=== PATIENT | male | born 1950 | race Caucasian/White ===

== ENCOUNTER 2017-02-05 13:42 | Outpatient (RCR) | payer BC ==
[~2017-02-05 13:42] MED LIST: ALPR.25T PO; ALPR0.254 PO; ASCO100083 PO; ASCO500T20 PO; ASP81CT PO; ASPI-983 PO; ATOR80TA PO; ATOR80TA75 PO; ATOR80TA76 PO; BACL10TA PO; CHOL200035 PO; CHOL200059 PO; CLOP75TA PO; CLOP75TA28 PO; ESCI20TA45 PO; ESCI5TAB PO; ISM30TCR PO; ISM60TCR PO; LEVO112T55 PO; LVT.112T PO; MAGN400C PO; METO-270 PO; METO25TA PO; MTP25TSR PO; NAPR220C11 PO; OMEG-82 PO; PNT40TEC PO; RANEXA 500MG PO; RANO500T3 PO; SAWP1CAP PO; TEST75GE3 TOP; VITA400C60 PO
== END 2017-02-11 15:12 | disposition home or self-care (01) ==
PROVIDERS: ATTEND Nurse Practitioner Family
DX: Z47.89 Encounter for other orthopedic aftercare (principal)

== ENCOUNTER 2017-06-05 08:34 | Emergency (ER) | payer BC, MEDICARE ==
[~2017-06-05] VITALS: Ht 188 cm; Wt 102.1 kg
[2017-06-05] MEDS ORDERED: NS IV 1000 ML 1,000 ML IV ONE ×2 (08:43→10:52)
[2017-06-05] MEDS ORDERED: fentaNYL INJECTION 100 MCG/2 ML AMP ONE (08:43)
--- NOTE | 2017-06-05 08:43 | ED GU-Male ---
General Stated Complaint: KIDNEY STONE Source: patient, spouse Exam Limitations: no limitations History of Present Illness Time seen by provider: 08:38 Initial Comments Patient presents to ER by private conveyance with his spouse with chief complaint of right flank pain and hesitancy and tinged urine. He is has a history of kidney stones. Feels it is passing one now. He has had have retrieval [address] Eng. He has had no fevers or chills. He is expressing some pain and had some dry heaves earlier today. He has a history of vascular disease and is on Plavix and aspirin. He is had 4 heart cast but says no stents. He's had a history of stroke. Allergies and Home Medications Allergies Coded Allergies: Codeine (Verified Allergy, Unknown, 06/14/07) Iodinated Contrast Media - IV Dye (Verified Allergy, Unknown, 06/14/07) fexofenadine (Verified Allergy, Unknown, 06/14/07) Home Medications Alprazolam 0.25 Mg Tablet, 0.25 MG PO HS PRN for SLEEP, (Reported) Ascorbic Acid 1,000 Mg Tab.chew, 1,000 MG PO DAILY, (Reported) Aspirin 81 Mg Tablet.dr, 81 MG PO DAILY, (Reported) Atorvastatin Calcium 80 Mg Tablet, 80 MG PO HS, (Reported) Baclofen 10 Mg Tablet, 10 MG PO HS, (Reported) Cholecalciferol (Vitamin D3) 2,000 Unit Tablet, 2,000 UNIT PO DAILY, (Reported) Clopidogrel Bisulfate 75 Mg Tablet, 75 MG PO DAILY, (Reported) Escitalopram Oxalate 20 Mg Tablet, 10 MG PO BID, (Reported) TAKES 1/2 (20MG) TABLET Levothyroxine Sodium 112 Mcg Tablet, 112 MCG PO DAILY, (Reported) Magnesium Oxide 400 Mg Capsule, 400 MG PO HS, (Reported) Metoprolol Succinate 25 Mg Tab.er.24h, 25 MG PO BID, (Reported) DOES NOT TAKE OF BP BELOW 100 [place]-3S/Dha/Epa/Fish Oil/D3 1 Each Capsule, 1 CAP PO DAILY, (Reported) Ranolazine 500 Mg Tab.er.12h, 500 MG PO HS, (Reported) Sawpalmtofrtxt/Zinc Picolinate 1 Each Capsule, 1 CAP PO DAILY, (Reported) 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, 1 APPFUL TOP DAILY, (Reported) Vitamin E Acetate 400 Unit Capsule, 400 UNIT PO DAILY, (Reported) Constitutional: No chills, No diaphoresis, No dizziness, No fever, No malaise Respiratory: No cough, No short of breath Cardiovascular: No chest pain, No palpitations Gastrointestinal: abdominal pain (right flank), No constipation, No diarrhea, nausea, vomiting Genitourinary: burning, denies discharge, dysuria, flank pain Musculoskeletal: No back pain, No joint pain Skin: No pruritus, No rash Psychiatric/Neurological: Denies Headache, Denies Numbness Past Fcvokbu-Fwyexn-Cvpyth Hx Patient Social History Former Smoker/When Quit: May 10, 1981 Recent Foreign Travel: No Contact w/Someone Who Travel: No Immunizations Up To Date Date of Pneumonia Vaccine: Sep 08, 2011 Date of Influenza Vaccine: Aug 08, 2015 Surgeries HX Surgeries: Yes (R KNEE, CATARACT REMOVAL, ESOPHAGEAL REPAIR, MULTIPLE HEART CATHS) Respiratory Hx Respiratory Disorders: No Cardiovascular Hx Cardiac Disorders: Yes (RIGHT BUNDLE BRANCH BLOCK) Neurological Hx Neurological Disorders: Yes Reproductive System Hx Reproductive Disorders: No Sexually Transmitted Disease: No Genitourinary Hx Genitourinary Disorders: Yes Genitourinary Disorders: Kidney Stones Gastrointestinal Hx Gastrointestinal Disorders: Yes (ESOPHAGEAL REPAIR) Gastrointestinal Disorders: Gastroesophageal Reflux, Esophagitis Musculoskeletal Hx Musculoskeletal Disorders: Yes Musculoskeletal Disorders: Arthritis Endocrine Hx Endocrine Disorders: Yes Endocrine Disorders: Hypothyroidsim HEENT HX ENT Disorders: No Loss of Vision: Denies Cancer Hx Cancer: No Psychosocial Hx Psychiatric Problems: No Integumentary HX Skin/Integumentary Disorder: No Blood Transfusions Hx Blood Disorders: No Adverse Reaction to a Blood Tr: No Family Medical History Family Medial History: Cardiovascular disease 19 MOTHER Myocardial infarction 19 MOTHER Physical Exam Vital Signs Vital Sign - Last 12Hours 06/05/17 08:35 Temp 98.0 Pulse 60 Resp 16 B/P (MAP) 157/105 Pulse Ox 98 O2 Delivery Room Air Capillary Refill : General Appearance: WD/WN, no apparent distress HEENT: PERRL/EOMI, pharynx normal Cardiovascular: regular rate, rhythm, no edema Respiratory: lungs clear, normal breath sounds Gastrointestinal: normal bowel sounds, non tender, soft Back: normal inspection, CVA tenderness (R) Extremities: no pedal edema, normal capillary refill Neurologic/Psychiatric: alert, oriented x 3 Skin: normal color, warm/dry Progress/Results/Core Measures Results/Orders Lab Results Laboratory Tests Test 06/05/17 08:43 06/05/17 11:25 Range/Units White Blood Count 6.0 4.3-11.0 10^3/uL Red Blood Count 4.44 4.35-5.85 10^6/uL Hemoglobin 14.0 13.3-17.7 G/DL Hematocrit 42 40-54 % Mean Corpuscular Volume 94 80-99 FL Mean Corpuscular Hemoglobin 32 25-34 PG Mean Corpuscular Hemoglobin Concent 34 32-36 G/DL Red Cell Distribution Width 13.2 10.0-14.5 % Platelet Count 251 130-400 10^3/uL Mean Platelet Volume 9.4 7.4-10.4 FL Neutrophils (%) (Auto) 61 42-75 % Lymphocytes (%) (Auto) 25 12-44 % Monocytes (%) (Auto) 12 0-12 % Eosinophils (%) (Auto) 1 0-10 % Basophils (%) (Auto) 1 0-10 % Neutrophils # (Auto) 3.6 1.8-7.8 X 10^3 Lymphocytes # (Auto) 1.5 1.0-4.0 X 10^3 Monocytes # (Auto) 0.7 0.0-1.0 X 10^3 Eosinophils # (Auto) 0.1 0.0-0.3 10^3/uL Basophils # (Auto) 0.0 0.0-0.1 10^3/uL Sodium Level 142 135-145 MMOL/L Potassium Level 3.8 3.6-5.0 MMOL/L Chloride Level 108 H 98-107 MMOL/L Carbon Dioxide Level 21 21-32 MMOL/L Anion Gap 13 5-14 MMOL/L Blood Urea Nitrogen 11 7-18 MG/DL Creatinine 0.93 0.60-1.30 MG/DL Estimat Glomerular Filtration Rate > 60 BUN/Creatinine Ratio 12 Glucose Level 120 H 70-105 MG/DL Calcium Level 8.9 8.5-10.1 MG/DL Total Bilirubin 0.8 0.1-1.0 MG/DL Aspartate Amino Transf (AST/SGOT) 24 5-34 U/L Alanine Aminotransferase (ALT/SGPT) 37 0-55 U/L Alkaline Phosphatase 92 40-136 U/L Total Protein 6.9 6.4-8.2 GM/DL Albumin 4.1 3.2-4.5 GM/DL My Orders Orders - DILEEP ROACH Ct Abd/Pelvis Wo(Kidney Stone) (06/05/17 08:43) Abdomen/Kub 1view (06/05/17 08:43) Saline Lock/Iv-Start (06/05/17 08:43) Ns Iv 1000 Ml (Sodium Chloride 0.9%) (06/05/17 08:43) Cbc With Automated Diff (06/05/17 08:43) Comprehensive Metabolic Panel (06/05/17 08:43) Ua Culture If Indicated (06/05/17 08:43) Fentanyl Injection (Sublimaze Injection (06/05/17 09:00) Ondansetron Injection (Zofran Injectio (06/05/17 09:00) Fentanyl Injection (Sublimaze Injection (06/05/17 08:43) Fentanyl Injection (Sublimaze Injection (06/05/17 10:30) Saline Lock/Iv-Start (06/05/17 10:52) Ns Iv 1000 Ml (Sodium Chloride 0.9%) (06/05/17 10:52) Ceftriaxone Injection (Rocephin Injectio (06/05/17 11:45) Medications Given in ED Current Medications Medications Dose Ordered Sig/Steve Route Start Time Stop Time Status Last Admin Dose Admin Fentanyl Citrate 50 mcg ONCE ONCE IVP 06/05/17 09:00 06/05/17 09:01 DC 06/05/17 08:50 50 MCG Fentanyl Citrate 50 mcg ONCE PRN IVP 06/05/17 10:30 06/05/17 10:43 50 MCG Ondansetron HCl 4 mg ONCE ONCE IVP 06/05/17 09:00 06/05/17 09:01 DC 06/05/17 08:53 4 MG Sodium Chloride 1,000 ml @ 0 mls/hr Q0M ONCE IV 06/05/17 08:43 06/05/17 08:46 DC 06/05/17 08:49 1,000 MLS/HR Sodium Chloride 1,000 ml @ 0 mls/hr Q0M ONCE IV 06/05/17 10:52 06/05/17 10:53 DC 06/05/17 11:03 1,000 MLS/HR Vital Signs/I&O Vital Sign - Last 12Hours 06/05/17 08:35 Temp 98.0 Pulse 60 Resp 16 B/P (MAP) 157/105 Pulse Ox 98 O2 Delivery Room Air Progress Note : Time: 11:44 Progress Note There are some stones in his clinical exam does not correlate with diverticulitis. However was given return precautions in case this is not resolved with the straining capturing of stones and Flomax and a gram or Rocephin now and Keflex to go home on. Patient states his understanding of the instructions. Diagnostic Imaging Diagonstic Imaging: Xray Plain Films/CT/US/NM/MRI: abdomen Comments NAME: MAGGI CHAVIRA [facility] REC#: [id number] PHYSICIAN: DILEEP ROACH MD CC: CAROL JALLOH; DILEEP ROACH Page 1 of 1 RADIOLOGY REPORT VIA [facility], [facility]. [place], [place] CC: CAROL JALLOH; DILEEP ROACH Page 1 of 1 RADIOLOGY REPORT NAME: MAGGI CHAVIRA [facility] REC#: [id number] PT STATUS: REG ER : 1950 PHYSICIAN: DILEEP ROACH MD ADMIT DATE: 06/05/17/ER Signed Date of Exam: 06/05/17 ABDOMEN/KUB 1VIEW INDICATION: Hematuria, history of kidney stones, abdominal pain. COMPARISON: 02/24/2016. FINDINGS: Single view of the abdomen demonstrates nonspecific gas within the small bowel. There is no distention. No visible calculi seen. IMPRESSION: Nonspecific KUB. No visible renal calculi. Dictated by: Dictated on workstation # [id number] Dict: 06/05/17 0946 Trans: 06/05/17 1044 Interpreted by: CAROL JALLOH Electronically signed by: CAROL JALLOH 06/05/17 1044 Reviewed: Reviewed by Me Diagonstic Imaging: CT Plain Films/CT/US/NM/MRI: abdomen (pelvis without. kidney protocol) [facility] [place], [place] NAME: MAGGI CHAVIRA [facility] REC#: [id number] PT STATUS: REG ER : 1950 PHYSICIAN: DILEEP ROACH MD ADMIT DATE: 06/05/17/ER Draft Date of Exam:06/05/17 CT ABD/PELVIS WO(KIDNEY STONE) PROCEDURE: CT urinary tract, rule out kidney stone. TECHNIQUE: Multiple contiguous axial images were obtained through the abdomen and pelvis without the use of intravenous contrast. INDICATION: Right-sided pain since early this morning. History of stones. Hematuria. EXAMINATION: CT abdomen and pelvis without contrast 06/05/2017 COMPARISON: 02/24/2016 FINDINGS: There is a small nodule in the right middle lobe stable from previous imaging. Remaining lung bases demonstrate areas of scar or atelectasis. A reticular nodular appearing density at the right lung base posteriorly is noted and could be due to its atypical infectious etiology although some of these findings were present on previous imaging. There is a nodule in the periphery of the right lung base laterally also stable. Small nodule left lung base posteriorly image 32 is noted not seen previously. Within the abdomen and the pelvis, the abdominal viscera limited by lack of contrast. The liver slightly prominent. No underlying abnormality is appreciated. The gallbladder unremarkable. Spleen normal in appearance. Adrenal glands and pancreas unremarkable. There is atherosclerotic disease along the course of the aorta and its branches. The right kidney demonstrates mild to moderate hydronephrosis. The right ureter slightly prominent along its entire course and in the distal right ureter at least 2 small punctate hyperdensities are noted less than a millimeter in size likely punctate passing stones proximal to the UVJ. The left ureter unremarkable. There is no hydronephrosis on the left. There is a hypodensity within the right kidney stable in size from previous imaging likely a cyst. A second more vague hypodensity is seen towards the inferior posterior aspect of the right kidney which may demonstrate minimal increase in size previously measuring 2.6 cm and now measuring just over 2.7 cm. An exophytic lesion off of the posterior aspect of the left mid kidney is stable and most consistent with Hounsfield units seen in cysts. No ascites or free air is seen. There is atherosclerotic disease noted. There is postoperative change in the right lower quadrant. Diverticular disease seen in the distal descending colon and sigmoid colon. Questionable minimal early fat stranding about the distal descending colon is seen versus chronic scarring given history of previous diverticulitis. Correlate with symptoms. No adjacent free air or fluid is seen. No acute abnormality seen in the osseous structures. IMPRESSION: 1. Tiny punctate densities in the distal right ureter proximal to the UVJ consistent with stones which cause mild to moderate right hydroureteronephrosis. 2. Cystic lesions in both kidneys likely all cysts. The larger lesion in the inferior right kidney slightly increased in size and these could be followed as clinically warranted. 3. Minimal fat stranding about the distal descending colon adjacent to several diverticula. This could be a chronic process. However, mild early diverticulitis not excluded; correlate with symptoms. Other findings as above. Dictated on workstation # [id number] Dict: 06/05/17 0946 Trans: 06/05/17 1026 [id number] Interpreted by: ROB RITCHIE MD Electronically signed by: Reviewed: Reviewed by Me Departure Impression Impression: Primary Impression: Kidney stones Additional Impression: Urinary tract infection Qualified Codes: N30.01 - Acute cystitis with hematuria Disposition: HOME, SELF-CARE Condition: Improved Departure-Patient Inst. Decision time for Depature: 11:45 Referrals: LISY BARILLAS DO (PCP) Primary Care Physician Patient Instructions: Kidney Stones (DC) Add. Discharge Instructions: You do have some kidney stones on the right side that should easily pass on their own. Drink copious amounts of fluids and drink caffeine. If you're having pain you can use heat to that side an NSAID such as ibuprofen, Naprosyn, Aleve or Tylenol. If this is not helping you can use one half to one tablet of hydrocodone every 6 hours as needed. For a few days after passing the stone it is not unusual to see some pink tinged urine or have some pain in the same area. If you're unable to pass the stones in 3-4 days you can follow-up with Dr. Patel in his office at [phone]. Opiates can cause confusion so he should not drive long distances or operate heavy machinery. They can also cause constipation so everyday you're taking an opiate you should take some kind of laxative such as MiraLAX or Dulcolax. You will also be sent out on tamsulosin to be taken every night to help pass the stones until they are gone. You will also be sent out on an antibiotic to cover for a urinary tract infection while stones or passing to be taken for 7 days. If you have fever or nausea or new or worsening symptoms should return to the ER or follow up with your primary care physician. Scripts Hydrocodone/Acetaminophen (Hydrocodon-Acetaminophn 10-325) 1 Each Tablet 1 EACH PO Q6H Y for PAIN, #12 TAB 0 Refills Prov: DILEEP ROACH 06/05/17 Tamsulosin HCl (Flomax) 0.4 Mg Cap 0.4 MG PO HS for 7 Days, #7 CAP 0 Refills Prov: DILEEP ROACH 06/05/17 Sulfamethoxazole/Trimethoprim (Bactrim Ds Tablet) 1 Each Tablet 1 EACH PO BID for 7 Days, #14 TAB 0 Refills Prov: DILEEP ROACH 06/05/17 Copy Copies To 1: LISY BARILLAS TITUS J Jun 05, 2017 08:43
[2017-06-05 08:51] LABS: BASOPHILS % (AUTO) 1 % (0-10); EOSINOPHILS # (AUTO) 0.1 10^3/uL (0.0-0.3); EOSINOPHILS % (AUTO) 1 % (0-10); LYMPHOCYTES # (AUTO) 1.5 X 10^3 (1.0-4.0); LYMPHOCYTES % (AUTO) 25 % (12-44); MEAN CORPUSCULAR HEMOGLOBIN 32 PG (25-34); MEAN CORPUSCULAR HGB CONC 34 G/DL (32-36); MEAN CORPUSCULAR VOLUME 94 FL (80-99); MEAN PLATELET VOLUME 9.4 FL (7.4-10.4); MONOCYTES # (AUTO) 0.7 X 10^3 (0.0-1.0); MONOCYTES % (AUTO) 12 % (0-12); NEUTROPHILS # (AUTO) 3.6 X 10^3 (1.8-7.8); NEUTROPHILS % (AUTO) 61 % (42-75); PLATELET COUNT 251 10^3/uL (130-400); RED BLOOD COUNT 4.44 10^6/uL (4.35-5.85); RED CELL DISTRIBUTION WIDTH 13.2 % (10.0-14.5)
[2017-06-05] MEDS ORDERED: fentaNYL INJECTION 100 MCG/2 ML AMP IVP ONE (09:00)
[2017-06-05] MEDS ORDERED: ONDANSETRON 4 MG/2 ML (SDV) Z0FRAN IVP ONE (09:00)
[2017-06-05 09:11] LABS: ALANINE AMINOTRANSFERASE 37 U/L (0-55); ALBUMIN 4.1 GM/DL (3.2-4.5); ANION GAP 13 MMOL/L (5-14); ASPARTATE AMINO TRANSFERASE 24 U/L (5-34); BILIRUBIN,TOTAL 0.8 MG/DL (0.1-1.0); BLOOD UREA NITROGEN 11 MG/DL (7-18); BUN/CREATININE RATIO 12; CALCIUM 8.9 MG/DL (8.5-10.1); CARBON DIOXIDE 21 MMOL/L (21-32); CHLORIDE 108 MMOL/L (98-107); CREATININE SERUM 0.93 MG/DL (0.60-1.30); GFR ESTIMATED > 60; GLUCOSE 120 MG/DL (70-105); POTASSIUM 3.8 MMOL/L (3.6-5.0); SODIUM 142 MMOL/L (135-145); TOTAL PROTEIN 6.9 GM/DL (6.4-8.2)
--- NOTE | 2017-06-05 09:58 | Diagnostic Imaging Report ---
INDICATION: Hematuria, history of kidney stones, abdominal pain. COMPARISON: 02/24/2016. FINDINGS: Single view of the abdomen demonstrates nonspecific gas within the small bowel. There is no distention. No visible calculi seen. IMPRESSION: Nonspecific KUB. No visible renal calculi. Dictated by: Dictated on workstation # [id number]
--- NOTE | 2017-06-05 10:26 | Diagnostic Imaging Report ---
PROCEDURE: CT urinary tract, rule out kidney stone. TECHNIQUE: Multiple contiguous axial images were obtained through the abdomen and pelvis without the use of intravenous contrast. INDICATION: Right-sided pain since early this morning. History of stones. Hematuria. EXAMINATION: CT abdomen and pelvis without contrast 06/05/2017 COMPARISON: 02/24/2016 FINDINGS: There is a small nodule in the right middle lobe stable from previous imaging. Remaining lung bases demonstrate areas of scar or atelectasis. A reticular nodular appearing density at the right lung base posteriorly is noted and could be due to its atypical infectious etiology although some of these findings were present on previous imaging. There is a nodule in the periphery of the right lung base laterally also stable. Small nodule left lung base posteriorly image 32 is noted not seen previously. Within the abdomen and the pelvis, the abdominal viscera limited by lack of contrast. The liver slightly prominent. No underlying abnormality is appreciated. The gallbladder unremarkable. Spleen normal in appearance. Adrenal glands and pancreas unremarkable. There is atherosclerotic disease along the course of the aorta and its branches. The right kidney demonstrates mild to moderate hydronephrosis. The right ureter slightly prominent along its entire course and in the distal right ureter at least 2 small punctate hyperdensities are noted less than a millimeter in size likely punctate passing stones proximal to the UVJ. The left ureter unremarkable. There is no hydronephrosis on the left. There is a hypodensity within the right kidney stable in size from previous imaging likely a cyst. A second more vague hypodensity is seen towards the inferior posterior aspect of the right kidney which may demonstrate minimal increase in size previously measuring 2.6 cm and now measuring just over 2.7 cm. An exophytic lesion off of the posterior aspect of the left mid kidney is stable and most consistent with Hounsfield units seen in cysts. No ascites or free air is seen. There is atherosclerotic disease noted. There is postoperative change in the right lower quadrant. Diverticular disease seen in the distal descending colon and sigmoid colon. Questionable minimal early fat stranding about the distal descending colon is seen versus chronic scarring given history of previous diverticulitis. Correlate with symptoms. No adjacent free air or fluid is seen. No acute abnormality seen in the osseous structures. IMPRESSION: 1. Tiny punctate densities in the distal right ureter proximal to the UVJ consistent with stones which cause mild to moderate right hydroureteronephrosis. 2. Cystic lesions in both kidneys likely all cysts. The larger lesion in the inferior right kidney slightly increased in size and these could be followed as clinically warranted. 3. Minimal fat stranding about the distal descending colon adjacent to several diverticula. This could be a chronic process. However, mild early diverticulitis not excluded; correlate with symptoms. Other findings as above. Dictated by: Dictated on workstation # [id number]
[2017-06-05] MEDS ORDERED: fentaNYL INJECTION 100 MCG/2 ML AMP IVP PRN (10:30)
[2017-06-05 11:37] LABS: BILIRUBIN,URINE NEGATIVE (NEGATIVE); KETONES,URINE NEGATIVE (NEGATIVE); LEUKOCYTE ESTERASE ,URINE 1+ (NEGATIVE); NITRITE,URINE NEGATIVE (NEGATIVE); PH,URINE 6 (5-9); PROTEIN,URINE 2+ (NEGATIVE); UROBILINOGEN,URINE NORMAL (NORMAL)
[2017-06-05] MEDS ORDERED: cefTRIAXone INJECTION 1,000 MG in NS (IVPB) 50 ML IV ONE (11:45)
[2017-06-05] MEDS ORDERED: HYDR-3820 PO (11:53)
[2017-06-05] MEDS ORDERED: TAMS0.4C98 PO ×2 (11:53→12:31)
[2017-06-05] MEDS ORDERED: SULF1TAB35 PO ×2 (11:53→12:31)
[2017-06-05 11:55] LABS: SQUAMOUS EPITHELIAL CELL,UR RARE /HPF
[2017-06-05 11:56] LABS: CALCIUM OXALATE CRYSTALS,UR FEW /LPF
[2017-06-05 11:57] LABS: YEAST,URINE FEW /HPF
[2017-06-05 12:40] VITALS: BP 132/91
== END 2017-06-05 12:40 | disposition home or self-care (01) ==
LOC: EDUNIT# 08:34 → ER 08:35
DX: N20.0 Calculus of kidney (principal); N39.0 Urinary tract infection, site not specified; E03.9 Hypothyroidism, unspecified; M19.90 Unspecified osteoarthritis, unspecified site; K21.9 Gastro-esophageal reflux disease without esophagitis; Z87.891 Personal history of nicotine dependence; Z79.82 Long term (current) use of aspirin; Z86.73 Personal history of transient ischemic attack (TIA), and cerebral infarction without residual deficits; Z98.890 Other specified postprocedural states
CPT/HCPCS: 36415; 74000; 74176; 80053; 81000; 85025; 87088

== ENCOUNTER 2017-11-09 10:02 | Outpatient (CLI) | payer MEDICARE, BC ==
[~2017-11-09] VITALS: Ht 185.4 cm; Wt 104.3 kg
[~2017-11-09 10:02] MED LIST changes: +HYDR-3820 PO; -METO-270 PO; +METO-387 PO; +SULF1TAB35 PO; +TAMS0.4C98 PO
[2017-11-09 10:13] VITALS: BP 133/89
[2017-11-09] MEDS ORDERED: MAGN400T6 PO (10:23)
[2017-11-09] MEDS ORDERED: CHOL500044 PO (10:23)
[2017-11-09] MEDS ORDERED: MULT-1030 PO (10:23)
[2017-11-09] MEDS ORDERED: VITA100035 PO (10:23)
[2017-11-09] MEDS ORDERED: ASCO-281 PO (10:23)
--- NOTE | 2017-11-09 11:01 | Diagnostic Imaging Report ---
INDICATION: Preoperative evaluation. COMPARISON: 01/13/2016. FINDINGS: Two views of the chest were obtained. The heart size and pulmonary vasculature appear unremarkable. There is no pneumothorax, mediastinal widening, or pleural fluid demonstrated. The lungs are clear. There are degenerative changes in the spine. IMPRESSION: No acute cardiopulmonary abnormality is demonstrated. No significant interval change from the prior study. Dictated by: Dictated on workstation # [id number]
[2017-11-09 11:06] LABS: BASOPHILS % (AUTO) 1 % (0-10); BILIRUBIN,URINE NEGATIVE (NEGATIVE); CLARITY,URINE CLEAR; COLOR,URINE YELLOW; EOSINOPHILS # (AUTO) 0.1 10^3/uL (0.0-0.3); EOSINOPHILS % (AUTO) 1 % (0-10); GLUCOSE, URINE (UA) NEGATIVE (NEGATIVE); HEMATOCRIT 43 % (40-54); HEMOGLOBIN 14.6 G/DL (13.3-17.7); KETONES,URINE NEGATIVE (NEGATIVE); LEUKOCYTE ESTERASE ,URINE 1+ (NEGATIVE); LYMPHOCYTES # (AUTO) 1.6 X 10^3 (1.0-4.0); LYMPHOCYTES % (AUTO) 24 % (12-44); MEAN CORPUSCULAR HEMOGLOBIN 32 PG (25-34); MEAN CORPUSCULAR HGB CONC 34 G/DL (32-36); MEAN CORPUSCULAR VOLUME 93 FL (80-99); MEAN PLATELET VOLUME 9.8 FL (7.4-10.4); MONOCYTES # (AUTO) 0.5 X 10^3 (0.0-1.0); MONOCYTES % (AUTO) 7 % (0-12); NEUTROPHILS # (AUTO) 4.4 X 10^3 (1.8-7.8); NEUTROPHILS % (AUTO) 67 % (42-75); NITRITE,URINE NEGATIVE (NEGATIVE); PH,URINE 5 (5-9); PLATELET COUNT 279 10^3/uL (130-400); PROTEIN,URINE NEGATIVE (NEGATIVE); RED BLOOD COUNT 4.59 10^6/uL (4.35-5.85); RED CELL DISTRIBUTION WIDTH 12.7 % (10.0-14.5); UROBILINOGEN,URINE NORMAL (NORMAL); WHITE BLOOD COUNT 6.6 10^3/uL (4.3-11.0)
[2017-11-09 11:15] LABS: BUN/CREATININE RATIO 12; CALCIUM 9.2 MG/DL (8.5-10.1); CARBON DIOXIDE 24 MMOL/L (21-32); CHLORIDE 106 MMOL/L (98-107); CREATININE SERUM 0.83 MG/DL (0.60-1.30); GFR ESTIMATED > 60; GLUCOSE 215 MG/DL (70-105); POTASSIUM 3.5 MMOL/L (3.6-5.0); SODIUM 140 MMOL/L (135-145)
[2017-11-09 11:17] LABS: WBC,URINE RARE /HPF
[2017-11-09 11:18] LABS: BACTERIA,URINE NEGATIVE /HPF
[2017-11-09 11:28] LABS: PROTHROMBIN TIME PATIENT 13.2 SEC (12.2-14.7)
== END 2017-11-09 10:55 | disposition home or self-care (01) ==
LOC: PREOP 10:02
PROVIDERS: ATTEND Orthopaedic Surgery
DX: Z01.810 Encounter for preprocedural cardiovascular examination (principal); Z01.812 Encounter for preprocedural laboratory examination; Z11.2 Encounter for screening for other bacterial diseases; M79.661 Pain in right lower leg; Z22.322 Carrier or suspected carrier of Methicillin resistant Staphylococcus aureus; R53.83 Other fatigue
CPT/HCPCS: 36415; 71046; 80048; 81000; 85025; 85610; 86850; 86900; 86901; 87081; 93005

== ENCOUNTER 2017-11-23 10:05 | Inpatient (IN) | payer MEDICARE, BC ==
[~2017-11-23] VITALS: Ht 185.4 cm; Wt 104.3 kg
[~2017-11-23 10:05] MED LIST changes: +ASCO-281 PO; +CHOL500044 PO; +MAGN400T6 PO; +MULT-1030 PO; +VITA100035 PO
[2017-11-23] MEDS ORDERED: GENTAMICIN 40 MG/ML 2 ML INJ SDV ONE (10:33)
--- OUTSIDE RECORDS SUMMARY | 2017-11-23 10:34 | XMS REPORT | Continuity of Care Document ---
Author Author [facility] Organization [facility] Address Unknown Phone Unavailable Allergies Active Description Code Type Severity Reaction Onset Reported/Identified Relationship to Patient Clinical Status Yes codeine [id number] Drug Allergy Unknown N/A 06/14/2007 Yes fexofenadine [id number] Drug Allergy Unknown N/A 06/14/2007 Yes Iodinated Contrast Media - IV Dye [id number] Drug Allergy Unknown N/A 06/14 Yes Iodinated Contrast Media - Oral and [id number] Drug Allergy Unknown N/A 05/2007 Yes Iodinated Contrast- Oral and IV Dye [id number] Drug Allergy Unknown N/A 05/2007 Yes hydrocodone [id number] Drug Allergy Unknown N/A 11/09/2017 Medications There is no data. Problems Date Dx Coded Attending Type Code Diagnosis Diagnosed By 10/07/1511 ANISH LYNN APRN Ot Z47.89 ENCOUNTER FOR OTHER ORTHOPEDIC AFTERCARE 10/07/1555 AL GAVIN DO Ot Z47.1 10/07/1555 AL GAVIN DO Ot Z96.651 03/27/2010 Ot 787.20 03/27/2010 Ot V12.72 03/27/2010 Ot V67.09 11/25/2010 Ot 724.1 11/25/2010 Ot V57.1 12/18/2010 Ot 724.1 12/18/2010 Ot V57.1 10/21/2012 Ot 300.00 ANXIETY STATE NOS 10/21/2012 Ot 401.9 HYPERTENSION NOS 10/21/2012 Ot 437.7 TRANSIENT GLOBAL AMNESIA 10/21/2012 Ot 780.93 MEMORY LOSS 10/26/2012 Ot 244.9 HYPOTHYROIDISM NOS 10/26/2012 Ot 401.9 HYPERTENSION NOS 10/26/2012 Ot 414.01 CORONARY ATHEROSCLEROSIS OF [place] CORON 10/26/2012 Ot 530.81 ESOPHAGEAL REFLUX 10/26/2012 Ot 780.93 MEMORY LOSS 10/26/2012 Ot 782.0 SKIN SENSATION DISTURB 10/26/2012 Ot 784.0 HEADACHE 10/29/2012 Ot 784.2 SWELLING IN HEAD NECK 10/29/2012 Ot 920 CONTUSION FACE/ SCALP/NCK 10/29/2012 Ot E000.8 OTHER EXTERNAL CAUSE STATUS 10/29/2012 Ot E928.9 ACCIDENT NOS 05/26/2013 LISY BARILLAS DO Ot 244.9 HYPOTHYROIDISM NOS 05/26/2013 LISY BARILLAS DO S Ot 272.4 HYPERLIPIDEMIA NEC/NOS 05/26/2013 LISY BARILLAS DO S Ot 346.90 MIGRAINE UNSPECIFIED W/O INTRACT MGRN W/ 05/26/2013 LUIS BARILLAS DOLINE S Ot 401.9 HYPERTENSION NOS 05/26/2013 LISY BARILLAS DO S Ot 413.9 ANGINA PECTORIS NEC/NOS 05/26/2013 LUIS BARILLAS DOLINE S Ot 414.01 CORONARY ATHEROSCLEROSIS OF [place] CORON 05/26/2013 LISY BARILLAS DO S Ot 530.81 ESOPHAGEAL REFLUX 05/26/2013 LISY BARILLAS DO S Ot 722.4 CERVICAL DISC DEGEN 05/26/2013 LUIS BARILLAS DOLINE S Ot 722.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 DISC DEGEN 05/26/2013 LISY BARILLAS DO S Ot 786.05 SHORTNESS OF BREATH 05/26/2013 LISY BARILLAS DO S Ot V12.54 PERSONAL HX OF TIA, CEREBRAL INFARCTION 05/26/2013 LISY BARILLAS DO S Ot V58.63 LONG-TERM(CURRENT)USE OF ANTIPLATELET/AN 05/26/2013 LUIS BARILLAS DOLINE S Ot V58.66 LONG-TERM (CURRENT) USE OF ASPIRIN 05/26/2013 LUIS BARILLAS DOLINE S Ot V58.69 OTH MED,LT,CURRENT USE 04/03/2014 LUIS BARILLAS DOLINE S Ot 414.00 CORON ATHEROSCLER NOS TYPE VESSEL, NATIV 04/03/2014 LISY BARILLAS DO S Ot 785.1 PALPITATIONS 04/12/2014 LISY BARILLAS DO S Ot 244.9 HYPOTHYROIDISM NOS 04/12/2014 LISY BARILLAS DO S Ot 272.4 HYPERLIPIDEMIA NEC/NOS 04/12/2014 ERAN STONER LISY S Ot 276.51 DEHYDRATION 04/12/2014 ERAN STONER LISY S Ot 300.00 ANXIETY STATE NOS 04/12/2014 ERAN STONER, LISY S Ot 401.9 HYPERTENSION NOS 04/12/2014 ERAN STONER LISY S Ot 414.01 CORONARY ATHEROSCLEROSIS OF [place] CORON 04/12/2014 ERAN STONER LISY S Ot 426.4 RT BUNDLE BRANCH BLOCK 04/12/2014 BRUCEPITO STONER LISY S Ot 786.09 RESPIRATORY ABNORM NEC 04/12/2014 ERAN STONER LISY S Ot 786.59 CHEST PAIN NEC 04/12/2014 ERAN STONER LISY Gomez Ot V58.69 OTH MED,LT,CURRENT USE 05/10/2014 ROSEANN VILLAGRAN, AL S Ot 244.9 HYPOTHYROIDISM NOS 05/10/2014 ROSEANN VILLAGRAN, AL Gomez Ot 272.4 HYPERLIPIDEMIA NEC/NOS 05/10/2014 ROSEANN VILLAGRAN, AL Gomez Ot 401.9 HYPERTENSION NOS 05/10/2014 ROSEANN VILLAGRAN, AL Gomez Ot 530.5 DYSKINESIA OF ESOPHAGUS 05/10/2014 ROSEANN VILLAGRAN, AL Gomez Ot 562.10 DIVERTICULOSIS COLON (W/O MENT OF HEMORR 05/10/2014 ROSEANN VILLAGRAN, AL Gomez Ot V12.72 PERSONAL HISTORY OF COLONIC POLYPS 08/02/2015 Ot 789.00 08/02/2015 Ot 789.00 08/02/2015 Ot 724.1 08/02/2015 Ot 721.2 08/02/2015 LISY BARILLAS DO Ot 784.0 08/02/2015 ERAN STONER LISY S Ot V81.5 08/02/2015 Ot 414.00 08/02/2015 Ot 785.1 08/02/2015 ROSEANN VILLAGRAN, AL Gomez Ot V72.84 10/24/2015 AL GAVIN DO Ot Z47.1 10/24/2015 AL GAVIN DO Ot Z96.651 12/23/2015 AL GAVIN DO Ot Z47.1 AFTERCARE FOLLOWING JOINT REPLACEMENT SON 12/23/2015 AL GAVIN DO Ot Z96.651 PRESENCE OF RIGHT ARTIFICIAL KNEE JOINT 01/15/2016 LISY BARILLAS DO Ot E03.9 01/15/2016 KARINNDER , LISY S Ot E78.5 01/15/2016 KARINNDER , LISY S Ot I10 01/15/2016 KARINNDER LUIS STONERLINE S Ot I25.10 01/15/2016 KARINNDER LUIS STONERLINE S Ot I45.10 01/15/2016 KARINNDER LISY S Ot R07.89 01/15/2016 KARINNDER LISY S Ot Z86.73 01/15/2016 KARINNDER LUIS STONERLINE S Ot E03.9 HYPOTHYROIDISM, UNSPECIFIED 01/15/2016 KARINNDER LUIS STONERLINE S Ot E78.5 HYPERLIPIDEMIA, UNSPECIFIED 01/15/2016 KARINNDER LISY S Ot F41.9 ANXIETY DISORDER, UNSPECIFIED 01/15/2016 KARINNDER LUIS STNOERLINE S Ot I10 ESSENTIAL (PRIMARY) HYPERTENSION 01/15/2016 ERAN STONER LISY S Ot I25.10 ATHSCL HEART DISEASE OF [place] CORONARY 01/15/2016 LUIS BARILLAS DOLINE S Ot I45.10 UNSPECIFIED RIGHT BUNDLE-BRANCH BLOCK 01/15/2016 LUIS BARILLAS DOLINE S Ot K21.9 GASTRO-ESOPHAGEAL REFLUX DISEASE WITHOUT 01/15/2016 KARINNDER LUIS STONERLINE S Ot R07.89 OTHER CHEST PAIN 01/15/2016 LUIS BARILLAS DOLINE S Ot R41.0 DISORIENTATION, UNSPECIFIED 01/15/2016 BRUCEER LISY S Ot R51 HEADACHE 01/15/2016 ERAN STONER LISY S Ot Z79.899 OTHER PATENTS EXAMINER (CURRENT) DRUG THERAPY 01/15/2016 KARINNDER LUIS STONERLINE S Ot Z86.73 PRSNL HX OF TIA (TIA), AND CEREB INFRC W 01/15/2016 KARINNDER LIUS STONERLINE S Ot Z87.891 PERSONAL HISTORY OF NICOTINE DEPENDENCE 01/17/2016 LUIS BARILLAS DOLINE S Ot E03.9 01/17/2016 KARINNDER LISY S Ot E78.5 01/17/2016 KARINNDER LISY S Ot I10 01/17/2016 ORENDER DO, LISY S Ot I25.10 01/17/2016 ORENDER DO, LISY S Ot I45.10 01/17/2016 ORENDER DO, LISY S Ot R07.89 01/17/2016 ORENDER DO, LISY S Ot Z86.73 01/17/2016 ORENDER DO, LISY S Ot E03.9 01/17/2016 ORENDER DO, LISY S Ot E78.5 01/17/2016 ORENDER DO, LISY S Ot I10 01/17/2016 ORENDER DO, LISY S Ot I25.10 01/17/2016 ORENDER DO, LISY S Ot I45.10 01/17/2016 ORENDER DO, LISY S Ot R07.89 01/17/2016 ORENDER DO, LISY S Ot Z86.73 01/17/2016 OREND DO, LISY S Ot E03.9 01/17/2016 [facility] Ot E78.5 01/17/2016 ORENDER DO, LISY S Ot I10 01/17/2016 ORENDER DO, LISY S Ot I25.10 01/17/2016 ORENDER DO, LISY S Ot I45.10 01/17/2016 ORENDER DO, LISY S Ot R07.89 01/17/2016 [facility], L[facility]Y S Ot Z86.73 01/21/2016 [facility] S Ot E03.9 01/21/2016 [facility], LISY S Ot E78.5 01/21/2016 [facility], LISY S Ot F41.9 01/21/2016 [facility], LISY S Ot I10 01/21/2016 [facility], LISY S Ot I25.10 01/21/2016 ORENDER DO, LISY S Ot I45.10 01/21/2016 ORENDER DO, LISY S Ot K21.9 01/21/2016 [facility], LISY S Ot R07.89 01/21/2016 [facility], LISY S Ot R41.0 01/21/2016 [facility], LISY S Ot R51 01/21/2016 [facility], LISY S Ot Z79.899 01/21/2016 [facility], LISY S Ot Z86.73 01/21/2016 [facility], LISY S Ot Z87.891 02/12/2016 ORENDER DO, LISY S Ot E03.9 02/12/2016 [facility] L[facility]Y S Ot E78.5 02/12/2016 ORENDER DO, LISY S Ot F41.9 02/12/2016 [facility], LISY S Ot I10 02/12/2016 [facility] S Ot I25.10 02/12/2016 [facility] S Ot I45.10 02/12/2016 [facility], LISY S Ot K21.9 02/12/2016 [facility] S Ot R07.89 02/12/2016 [facility]Y S Ot R41.0 02/12/2016 [facility], [facility] S Ot R51 02/12/2016 [facility], [facility]Y S Ot Z79.899 02/12/2016 [facility] S Ot Z86.73 02/12/2016 [facility] S Ot Z87.891 02/25/2016 LULU VILLAGRAN, TRISH Sung Ot R31.9 HEMATURIA, UNSPECIFIED 03/11/2016 LULU VILLAGRAN, TRISH A Ot R31.9 HEMATURIA, UNSPECIFIED 03/17/2016 LULU VILLAGRAN, TRISH Sung Ot N28.9 DISORDER OF KIDNEY AND URETER, UNSPECIFI 03/17/2016 LULU VILLAGRAN, TRISH Sung Ot N28.9 DISORDER OF KIDNEY AND URETER, UNSPECIFI 03/22/2016 LULU VILLAGRAN, TRISH Sung Ot N28.9 DISORDER OF KIDNEY AND URETER, UNSPECIFI 04/02/2016 LULU VILLAGRAN, TRISH Sung Ot N28.9 DISORDER OF KIDNEY AND URETER, UNSPECIFI 12/02/2016 [facility] S Ot 784.0 HEADACHE 12/02/2016 [facility] Ot V81.5 SCREEN FOR NEPHROPATHY 12/02/2016 Ot 414.00 CORON ATHEROSCLER NOS TYPE VESSEL, NATIV 12/02/2016 Ot 785.1 PALPITATIONS 12/02/2016 ROSEANN VILLAGRAN, AL Jason Ot V72.84 EXAM PRE-OPERATIVE NOS 12/02/2016 LULU VILLAGRAN, TRISH Sung Ot R31.9 HEMATURIA, UNSPECIFIED 12/02/2016 TRISH LAWSON MD Ot N28.9 DISORDER OF KIDNEY AND URETER, UNSPECIFI 01/21/2017 ANISH LYNN APRN Ot Z47.89 ENCOUNTER FOR OTHER ORTHOPEDIC AFTERCARE 02/11/2017 ANISH LYNN APRN Ot Z47.89 ENCOUNTER FOR OTHER ORTHOPEDIC AFTERCARE 06/05/2017 DILEEP ROACH MD Ot E03.9 HYPOTHYROIDISM, UNSPECIFIED 06/05/2017 DILEEP ROACH MD Ot K21.9 GASTRO-ESOPHAGEAL REFLUX DISEASE WITHOUT 06/05/2017 DILEEP ROACH MD Ot M19.90 UNSPECIFIED OSTEOARTHRITIS, UNSPECIFIED 06/05/2017 DILEEP ROACH MD Ot N20.0 CALCULUS OF KIDNEY 06/05/2017 DILEEP ROACH MD Ot N39.0 URINARY TRACT INFECTION, SITE NOT SPECIF 06/05/2017 DILEEP ROACH MD Ot R10.9 UNSPECIFIED ABDOMINAL PAIN 06/05/2017 DILEEP ROACH MD Ot Z79.82 FPC (CURRENT) USE OF ASPIRIN 06/05/2017 DILEEP ROACH MD Ot Z86.73 PRSNL HX OF TIA (TIA), AND CEREB INFRC W 06/05/2017 DILEEP ROACH MD Ot Z87.891 PERSONAL HISTORY OF NICOTINE DEPENDENCE 06/05/2017 DILEEP ROACH MD Ot Z98.890 OTHER SPECIFIED POSTPROCEDURAL STATES 11/09/2017 AL GAVIN DO, Ot M79.661 PAIN IN RIGHT LOWER LEG 11/09/2017 AL GAVIN DO, Ot M79.661 PAIN IN RIGHT LOWER LEG 11/09/2017 Ot 414.00 CORON ATHEROSCLER NOS TYPE VESSEL, NATIV 11/09/2017 Ot 785.1 PALPITATIONS 11/12/2017 AL GAVIN DO, Ot M79.661 PAIN IN RIGHT LOWER LEG 11/12/2017 AL GAVIN DO Ot R53.83 OTHER FATIGUE 11/12/2017 AL GAVIN DO Ot Z01.810 ENCOUNTER FOR PREPROCEDURAL CARDIOVASCUL 11/12/2017 AL GAVIN DO Ot Z01.812 ENCOUNTER FOR PREPROCEDURAL LABORATORY E 11/12/2017 AL GAVIN DO Ot Z11.2 ENCOUNTER FOR SCREENING FOR OTHER BACTER 11/12/2017 AL GAVIN DO Ot Z22.322 CARRIER OR SUSPECTED CARRIER OF METHICIL Procedures Code Description Performed By Performed On 37.22 LEFT HEART CARDIAC CATH 10/25/2012 88.53 LT HEART ANGIOCARDIOGRAM 10/25/2012 88.56 CORONAR ARTERIOGR-2 CATH 10/25/2012 Results Test Result Range Complete blood count (CBC) with automated white blood cell (WBC) differential - 06/05/17 08:43 Blood leukocytes automated count (number/volume) 6.0 10*3/uL 4.3-11.0 Blood erythrocytes automated count (number/volume) 4.44 10*6/uL 4.35-5.85 Venous blood hemoglobin measurement (mass/volume) 14.0 g/dL 13.3-17.7 Blood hematocrit (volume fraction) 42 % 40-54 Automated erythrocyte mean corpuscular volume 94 [foz_us] 80-99 Automated erythrocyte mean corpuscular hemoglobin (mass per erythrocyte) 32 pg 25-34 Automated erythrocyte mean corpuscular hemoglobin concentration measurement ( mass/volume) 34 g/dL 32-36 Automated erythrocyte distribution width ratio 13.2 % 10.0-14.5 Automated blood platelet count (count/volume) 251 10*3/uL 130-400 Automated blood platelet mean volume measurement 9.4 [foz_us] 7.4-10.4 Automated blood neutrophils/100 leukocytes 61 % 42-75 Automated blood lymphocytes/100 leukocytes 25 % 12-44 Blood monocytes/100 leukocytes 12 % 0-12 Automated blood eosinophils/100 leukocytes 1 % 0-10 Automated blood basophils/100 leukocytes 1 % 0-10 Blood neutrophils automated count (number/volume) 3.6 10*3 1.8-7.8 Blood lymphocytes automated count (number/volume) 1.5 10*3 1.0-4.0 Blood monocytes automated count (number/volume) 0.7 10*3 0.0-1.0 Automated eosinophil count 0.1 10*3/uL 0.0-0.3 Automated blood basophil count (count/volume) 0.0 10*3/uL 0.0-0.1 Comprehensive metabolic panel - 06/05/17 08:43 Serum or plasma sodium measurement (moles/volume) 142 mmol/L 135-145 Serum or plasma potassium measurement (moles/volume) 3.8 mmol/L 3.6-5.0 Serum or plasma chloride measurement (moles/volume) 108 mmol/L 98-107 Carbon dioxide 21 mmol/L 21-32 Serum or plasma anion gap determination (moles/volume) 13 mmol/L 5-14 Serum or plasma urea nitrogen measurement (mass/volume) 11 mg/dL 7-18 Serum or plasma creatinine measurement (mass/volume) 0.93 mg/dL 0.60-1.30 Serum or plasma urea nitrogen/creatinine mass ratio 12 NRG Serum or plasma creatinine measurement with calculation of estimated glomerular filtration rate > NRG Serum or plasma glucose measurement (mass/volume) 120 mg/dL 70-105 Serum or plasma calcium measurement (mass/volume) 8.9 mg/dL 8.5-10.1 Serum or plasma total bilirubin measurement (mass/volume) 0.8 mg/dL 0.1-1.0 Serum or plasma alkaline phosphatase measurement (enzymatic activity/volume) 92 U/L 40-136 Serum or plasma aspartate aminotransferase measurement (enzymatic activity/ volume) 24 U/L 5-34 Serum or plasma alanine aminotransferase measurement (enzymatic activity/volume ) 37 U/L 0-55 Serum or plasma protein measurement (mass/volume) 6.9 g/dL 6.4-8.2 Serum or plasma albumin measurement (mass/volume) 4.1 g/dL 3.2-4.5 Complete urinalysis with reflex to culture - 06/05/17 11:25 Urine color determination YELLOW NRG Urine clarity determination SLIGHTLY CLOUDY NRG Urine pH measurement by test strip 6 5-9 Specific gravity of urine by test strip 1.020 1.016- 1.022 Urine protein assay by test strip, semi-quantitative 2+ NEGATIVE Urine glucose detection by automated test strip NEGATIVE NEGATIVE Erythrocytes detection in urine sediment by light microscopy 5+ NEGATIVE Urine ketones detection by automated test strip NEGATIVE NEGATIVE Urine nitrite detection by test strip NEGATIVE NEGATIVE Urine total bilirubin detection by test strip NEGATIVE NEGATIVE Urine urobilinogen measurement by automated test strip (mass/volume) NORMAL NORMAL Urine leukocyte esterase detection by dipstick 1+ NEGATIVE Automated urine sediment erythrocyte count by microscopy (number/high power field) [HPF] NRG Automated urine sediment leukocyte count by microscopy (number/high power field ) [HPF] NRG Bacteria detection in urine sediment by light microscopy TRACE NRG Squamous epithelial cells detection in urine sediment by light microscopy RARE NRG Crystals detection in urine sediment by light microscopy PRESENT NRG Casts detection in urine sediment by light microscopy NONE NRG Mucus detection in urine sediment by light microscopy NEGATIVE NRG Complete urinalysis with reflex to culture YES NRG Yeast detection in urine sediment by light microscopy FEW NRG Calcium oxalate crystals detection in urine sediment by light microscopy FEW NRG Bacterial urine culture - 06/05/17 11:25 URINE CULTURE RESULTS <10,000/ML NRG Complete blood count (CBC) with automated white blood cell (WBC) differential - 11/09/17 10:35 Blood leukocytes automated count (number/volume) 6.6 10*3/uL 4.3-11.0 Blood erythrocytes automated count (number/volume) 4.59 10*6/uL 4.35-5.85 Venous blood hemoglobin measurement (mass/volume) 14.6 g/dL 13.3-17.7 Blood hematocrit (volume fraction) 43 % 40-54 Automated erythrocyte mean corpuscular volume 93 [foz_us] 80-99 Automated erythrocyte mean corpuscular hemoglobin (mass per erythrocyte) 32 pg 25-34 Automated erythrocyte mean corpuscular hemoglobin concentration measurement ( mass/volume) 34 g/dL 32-36 Automated erythrocyte distribution width ratio 12.7 % 10.0-14.5 Automated blood platelet count (count/volume) 279 10*3/uL 130-400 Automated blood platelet mean volume measurement 9.8 [foz_us] 7.4-10.4 Automated blood neutrophils/100 leukocytes 67 % 42-75 Automated blood lymphocytes/100 leukocytes 24 % 12-44 Blood monocytes/100 leukocytes 7 % 0-12 Automated blood eosinophils/100 leukocytes 1 % 0-10 Automated blood basophils/100 leukocytes 1 % 0-10 Blood neutrophils automated count (number/volume) 4.4 10*3 1.8-7.8 Blood lymphocytes automated count (number/volume) 1.6 10*3 1.0-4.0 Blood monocytes automated count (number/volume) 0.5 10*3 0.0-1.0 Automated eosinophil count 0.1 10*3/uL 0.0-0.3 Automated blood basophil count (count/volume) 0.0 10*3/uL 0.0-0.1 Whole blood basic metabolic panel - 11/09/17 10:35 Serum or plasma sodium measurement (moles/volume) 140 mmol/L 135-145 Serum or plasma potassium measurement (moles/volume) 3.5 mmol/L 3.6-5.0 Serum or plasma chloride measurement (moles/volume) 106 mmol/L 98-107 Carbon dioxide 24 mmol/L 21-32 Serum or plasma anion gap determination (moles/volume) 10 mmol/L 5-14 Serum or plasma urea nitrogen measurement (mass/volume) 10 mg/dL 7-18 Serum or plasma creatinine measurement (mass/volume) 0.83 mg/dL 0.60-1.30 Serum or plasma urea nitrogen/creatinine mass ratio 12 NRG Serum or plasma creatinine measurement with calculation of estimated glomerular filtration rate > NRG Serum or plasma glucose measurement (mass/volume) 215 mg/dL 70-105 Serum or plasma calcium measurement (mass/volume) 9.2 mg/dL 8.5-10.1 Complete urinalysis with reflex to culture - 11/09/17 10:35 Urine color determination YELLOW NRG Urine clarity determination CLEAR NRG Urine pH measurement by test strip 5 5-9 Specific gravity of urine by test strip 1.020 1.016- 1.022 Urine protein assay by test strip, semi-quantitative NEGATIVE NEGATIVE Urine glucose detection by automated test strip NEGATIVE NEGATIVE Erythrocytes detection in urine sediment by light microscopy 3+ NEGATIVE Urine ketones detection by automated test strip NEGATIVE NEGATIVE Urine nitrite detection by test strip NEGATIVE NEGATIVE Urine total bilirubin detection by test strip NEGATIVE NEGATIVE Urine urobilinogen measurement by automated test strip (mass/volume) NORMAL NORMAL Urine leukocyte esterase detection by dipstick 1+ NEGATIVE Automated urine sediment erythrocyte count by microscopy (number/high power field) [HPF] NRG Automated urine sediment leukocyte count by microscopy (number/high power field ) RARE NRG Bacteria detection in urine sediment by light microscopy NEGATIVE NRG Squamous epithelial cells detection in urine sediment by light microscopy 2-5 NRG Crystals detection in urine sediment by light microscopy NONE NRG Casts detection in urine sediment by light microscopy NONE NRG Mucus detection in urine sediment by light microscopy SMALL NRG Complete urinalysis with reflex to culture NO NRG PT panel in platelet poor plasma by coagulation assay - 11/09/17 10:35 Prothrombin time (PT) in platelet poor plasma by coagulation assay 13.2 s 12.2-14.7 INR in platelet poor plasma or blood by coagulation assay 1.0 0.8-1.4 Blood type T Indirect antibody screen panel - 11/09/17 10:35 ABO+Rh group OP NRG Blood group antibody screen NEGATIVE NRG Methicillin resistant Staphylococcus aureus (MRSA) screening culture - 10:35 Methicillin resistant Staphylococcus aureus (MRSA) screening culture NEG NRG Encounters ACCT No. Visit Date/Time Discharge Status Pt. Type Provider Facility Loc./Unit Complaint [id number] 11/09/2017 10:02:00 11/09/2017 10:55:00 DIS Outpatient AL GAVIN DO [facility] PREOP RIGHT KNEE TOTAL ARTHROPLASTY INSTABILITY [id number] 06/05/2017 08:35:00 06/05/2017 12:40:00 DIS Emergency DILEEP ROACH MD [facility] ER KIDNEY STONE [id number] 02/05/2017 13:42:00 02/11/2017 15:12:00 DIS Outpatient ANISH LYNN APRN [facility] REHAB S/P L THUMB CMC ARTHROPLASTY [id number] 03/16/2016 08:39:00 03/16/2016 23:59:59 CLS Outpatient TRISH LAWSON MD [facility] RAD RENAL LESION [id number] 02/24/2016 10:55:00 02/24/2016 23:59:59 CLS Outpatient TRISH LAWSON MD [facility] RAD HEMATURIA,ABDOMINAL PAIN [id number] 01/13/2016 10:20:00 01/15/2016 18:05:00 DIS Outpatient LISY BARILLAS DO [facility] CATH CHEST PAIN [id number] 12/23/2015 13:58:00 12/23/2015 15:56:00 DIS Outpatient AL GAVIN DO [facility] REHAB S/P TKR [id number] 05/10/2014 06:17:00 05/10/2014 11:00:00 DIS Outpatient AL WHITFIELD MD [facility] SDC HISTORY POLYPS; DYSPHAGIA [id number] 05/09/2014 07:30:00 05/09/2014 23:59:59 CLS Outpatient AL WHITFIELD MD [facility] PREOP HISTORY POLYPS; DYSPHAGIA [id number] 04/11/2014 11:39:00 04/12/2014 12:25:00 DIS Outpatient ERAN DOLUISLISY S [facility] CATH CHESTPAIN [id number] 01/03/2014 08:36:00 04/03/2014 00:01:00 DIS Outpatient BRUCEER DO LISY S [facility] CARD CAD,PALPITATIONS [id number] 10/20/2013 11:45:00 10/20/2013 23:59:59 CLS Outpatient ERAN DO LISY S [facility] RAD CEPHAGLIA [id number] 05/25/2013 11:15:00 05/26/2013 15:45:00 DIS Outpatient ERAN DO LISY S [facility] CATH CHEST PAIN,HX CAD [id number] 11/23/2017 12:45:00 PEN Preadmit LESLYEAL SHELDON DO RIGHT TOTAL KNEE ARTHROPLASTY INSTABILITY [id number] 08/02/2015 10:50:00 Document Registration [id number] 08/02/2015 10:50:00 Document Registration [id number] 04/04/2014 09:00:00 Document Registration [id number] 10/29/2012 11:51:00 Document Registration [id number] 10/24/2012 12:50:00 Document Registration [id number] 10/21/2012 16:38:00 Document Registration [id number] 12/18/2010 18:05:00 Document Registration [id number] 11/25/2010 16:01:00 Document Registration [id number] 08/07/2010 11:54:00 Document Registration [id number] 07/28/2010 17:47:00 Document Registration [id number] 03/27/2010 06:06:00 Document Registration
[2017-11-23] MEDS ORDERED: NEOSPORIN + PAIN RELIEF CREAM 15 GM ONE (10:38)
[2017-11-23] MEDS ORDERED: MIDAZOLAM 2 MG/2 ML (VERSED) VIAL ONE (10:42)
[2017-11-23] MEDS ORDERED: ROPIVACAINE 5MG/ML 30ML VIAL ONE (10:42)
[2017-11-23] MEDS ORDERED: GABAPENTIN 600 MG (NEURONTIN) TAB PO ONE ×2 (10:45→11:15)
[2017-11-23] MEDS ORDERED: DEXAMETHASONE 4 MG/ML SDV (DECADRON) IV ONE ×2 (10:45→11:15)
[2017-11-23] MEDS ORDERED: ONDANSETRON 4 MG/2 ML (SDV) Z0FRAN IVP ONE (10:45)
[2017-11-23] MEDS ORDERED: CELECOXIB 100 MG (CeleBREX) CAP PO ONE ×3 (10:45→11:15)
[2017-11-23] MEDS ORDERED: ceFAZolin 2 GM/50 ML NS 50 ML IV ONE (10:45)
[2017-11-23] MEDS ORDERED: SEVOFLURANE (ULTANE) 15 ML INHAL SOLN ONE ×5 (10:47→12:30)
[2017-11-23] MEDS ORDERED: ONDANSETRON 4 MG/2 ML (SDV) Z0FRAN ONE (10:47)
[2017-11-23] MEDS ORDERED: fentaNYL INJECTION 100 MCG/2 ML AMP ONE (10:47)
[2017-11-23] MEDS ORDERED: LIDOCAINE PF 2% 5 ML (XYLOCAINE) VIAL ONE (10:47)
[2017-11-23] MEDS ORDERED: DEXAMETHASONE 10 MG/ML (DECADRON) 1 ML VIAL ONE (10:47)
[2017-11-23] MEDS ORDERED: proPOfol 200 MG/20 ML (DIPRIVAN) VIAL IV ONE (10:47)
[2017-11-23] MEDS: LACTATED RINGERS 1,000 ML IV PRN ×2 (11:00→12:00)
[2017-11-23] MEDS ORDERED: ceFAZolin 2 GM/NS 50 ML IV NR (11:00)
--- NOTE | 2017-11-23 11:01 | Progress Note-Pre Operative ---
Pre-Operative Progress Note H&P Reviewed The H&P was reviewed, patient examined and no changes noted. Date Seen by Provider: Nov 23, 2017 Time Seen by Provider: 10:50 Date H&P Reviewed: Nov 23, 2017 Time H&P Reviewed: 10:50 Pre-Operative Diagnosis: Right knee instability status post TKA AL GAVIN DO Nov 23, 2017 11:00 am
[2017-11-23] MEDS ORDERED: ceFAZolin 2 GM/50 ML NS 50 ML ONE (11:03)
[2017-11-23] MEDS ORDERED: GABAPENTIN 600 MG (NEURONTIN) TAB ONE (11:04)
[2017-11-23] MEDS ORDERED: DEXAMETHASONE 4 MG/ML SDV (DECADRON) ONE (11:04)
[2017-11-23] MEDS ORDERED: ONDANSETRON 4 MG/2 ML (SDV) Z0FRAN IV ONE (11:15)
[2017-11-23] MEDS ORDERED: INTRA-ARTICULAR IU ONE ×4 (11:15)
[2017-11-23] MEDS ORDERED: BACLOFEN 10 MG (LIORESAL) TAB PO PRN (11:30)
[2017-11-23] MEDS ORDERED: diphenhydrAMINE 50 MG/ML INJ (BENADRYL) IV PRN (11:30)
[2017-11-23] MEDS ORDERED: KETOROLAC 15 MG/ML VIAL IVP PRN (11:30)
[2017-11-23] MEDS ORDERED: morphine INJ 10 MG/ML 1ML (SYR OR VIAL) IVP PRN (11:30)
[2017-11-23] MEDS ORDERED: ONDANSETRON 4 MG/2 ML (SDV) Z0FRAN IVP PRN ×2 (11:30→13:15)
[2017-11-23] MEDS ORDERED: PROMETHAZINE INJ 25 MG/ML (PHENERGAN) AMP IVP PRN (11:30)
[2017-11-23] MEDS ORDERED: BISACODYL 10 MG SUPP (DULCOLAX) PR PRN (11:30)
[2017-11-23] MEDS ORDERED: TRANEXAMIC ACID 100 MG/ML 10 ML INJECTION IV ONE (11:44)
--- NOTE | 2017-11-23 12:19 | Progress Note-Post Operative ---
Post-Operative Progess Note Surgeon (s)/Sterile Supply Technician (s) Surgeon AL GAVIN DO Sterile Supply Technician: Alonzo Barron BALLISTIC EXPERTDaya Pre-Operative Diagnosis Right knee instability status post TKA Post-Operative Diagnosis same Procedure & Operative Findings Date of Procedure 11/23/17 Procedure Performed/Findings Revision polyethylene tibial insert right total knee Anesthesia Type General with femoral nerve block Estimated Blood Loss Estimated blood loss (mL): 50 ml Specimens/Packing Specimens Removed tibial insert and locking bar AL GAVIN DO Nov 23, 2017 12:19 pm
[2017-11-23] MEDS: morphine INJ 10 MG/ML 1ML (SYR OR VIAL) IVP PRN ×2 (13:05→13:10)
--- NOTE | 2017-11-23 13:14 | OPERATIVE REPORT ---
DATE OF SERVICE: 11/23/2017 PREOPERATIVE DIAGNOSES: Right knee instability, status post total knee arthroplasty. POSTOPERATIVE DIAGNOSES: Right knee instability, status post total knee arthroplasty. PROCEDURE: Revision polyethylene tibial insert, right total knee. SURGEON: Al Gavin. FIRST ASSISTANCE: JUAN Hurst. SURGICAL FIRST ASSISTANCE DUTY: Alonzo Barron, surgical coordinator was utilized throughout the entire procedure for the patient positioning, soft tissue retraction, placement of implants, wound closure, dressing application and patient transfer. ANESTHESIA: General with femoral nerve block. INDICATIONS AND FINDINGS: The patient is a 67-year-old male who underwent a total knee arthroplasty in 2014. The patient did well. The patient injured his knee. He continued to complain of instability. No disruption of his total knee components were noted. The patient demonstrated a slight recurvatum to his knee as well as of instability in both full flexion and mid range flexion. The patient was taken to surgery where his polyethylene tibial insert was removed and this was replaced with a 14 mm Biomet Vanguard anterior stabilized tibial bearing implant. This provided full stability of the knee in flexion and full flexion in midrange flexion as well as allowing full extension of his knee. No abnormalities of the femoral, tibial or patellar component were noted. PROCEDURE IN DETAIL: The patient was seen preoperatively. Under ultrasound guidance, a femoral nerve block was performed on the right to decrease postop pain and decrease amount of medication required during the surgical procedure. The patient was transferred to the operating room where general inhalation anesthetic was administered. A well-padded pneumatic tourniquet was placed about the upper aspect of the right thigh. A ChloraPrep and sterile drape of the right lower extremity was performed. The right leg was elevated, exsanguinated and the tourniquet inflated to 300 mmHg pressure. An anterior longitudinal midline incision was made through the previous incisional scar. The incision was deepened through a medial parapatellar incision. A small amount of subperiosteal dissection was performed of the proximal medial tibia. An osteotome was used to elevate the locking bar and remove this from his position in the tibial plate. The osteotome was then used to remove the 10 mm polyethylene insert. There was no evidence of wear on the polyethylene. No abnormalities of the femoral, tibial or patellar component were noted. The wound was irrigated extensively with normal saline solution. Trial implants were then inserted. The knee could be fully extended with a 14 mm trial spacer with no instability on flexion. This trial spacer was removed. A 14 mm x 79 mm anterior stabilized Biomet Vanguard tibial bearing implant was then inserted and locked with a new locking bar. The knee was cycled through a range of motion and found to be stable. The tourniquet was released. Hemostasis was obtained with electrocautery. The knee was placed in 90 degrees of flexion. The medial retinaculum was closed with multiple interrupted [id number] sutures of #1 Vicryl reinforced with a running suture of #1 Stratafix. The subcutaneous tissues were closed with 0 and 2-0 Vicryl suture. The skin was closed with stainless steel brittney and Adaptic Neosporin bulky dressing was placed about the right knee. The patient was awake and was transported to postop recovery with anesthesia personnel present in satisfactory condition. Job ID: [id number] DocumentID: [id number] Dictated Date: 11/23/2017 12:33:23 Imagery Intelligence Date: 11/23/2017 13:13:20 Dictated By: AL GAVIN DO
--- NOTE | 2017-11-23 13:15 | Diagnostic Imaging Report ---
EXAMINATION: Right knee, two views. COMPARISON: None. HISTORY: 67-year-old male, status post right total knee replacement. FINDINGS: There is a right total knee prosthesis. The hardware appears intact. There are anterior skin brittney. Intra-articular and additional soft tissue gas likely reflects the recent postoperative state of the patient. There is no identified acute fracture. IMPRESSION: 1. Placement of a right total knee prosthesis without identified complication. Dictated by: Dictated on workstation # [id number]
[2017-11-23 13:40] VITALS: BP 131/84
[2017-11-23] MEDS ORDERED: INFLUENZA TRIvalent 2017-2018 0.5 ML/45 MCG SYR IM ONE (14:00)
[2017-11-23] MEDS: D5 1/2 NS 1000 ML IV SOLUTION 1,000 ML IV SCH (15:26)
[2017-11-23 16:00] VITALS: BP 143/72
[2017-11-23] MEDS: ceFAZolin 2 GM/50 ML NS 50 ML IV SCH (19:02)
[2017-11-23 20:00] VITALS: BP 138/73
[2017-11-23] MEDS ORDERED: TAMSULOSIN 0.4 MG (FLOMAX) CAP PO ONE (22:11)
[2017-11-23] MEDS: TAMSULOSIN 0.4 MG (FLOMAX) CAP PO SCH (22:16)
[2017-11-24] VITALS: BP 152/74
[2017-11-24] MEDS: ceFAZolin 2 GM/50 ML NS 50 ML IV SCH (03:15)
[2017-11-24 04:00] VITALS: BP 145/82
[2017-11-24] MEDS: D5 1/2 NS 1000 ML IV SOLUTION 1,000 ML IV SCH (05:20)
[2017-11-24 07:37] LABS: HEMOGLOBIN 14.2 G/DL (13.3-17.7); MEAN PLATELET VOLUME 9.9 FL (7.4-10.4); RED BLOOD COUNT 4.38 10^6/uL (4.35-5.85); RED CELL DISTRIBUTION WIDTH 12.6 % (10.0-14.5); WHITE BLOOD COUNT 19.2 10^3/uL (4.3-11.0)
[2017-11-24 08:00] VITALS: BP 133/73
[2017-11-24 08:06] LABS: BUN/CREATININE RATIO 15; CALCIUM 9.4 MG/DL (8.5-10.1); CARBON DIOXIDE 24 MMOL/L (21-32); CHLORIDE 104 MMOL/L (98-107); GFR ESTIMATED > 60; GLUCOSE 151 MG/DL (70-105); POTASSIUM 3.8 MMOL/L (3.6-5.0); SODIUM 140 MMOL/L (135-145)
[2017-11-24] MEDS: ENOXAPARIN 40 MG/0.4 ML (LOVENOX) SYR SC SCH (08:26)
--- NOTE | 2017-11-24 09:38 | Physical Therapy Evaluation ---
PT Evaluation-General Medical Diagnosis Admission Date Nov 23, 2017 at 10:28 Medical Diagnosis: right TKR revision Onset Date: Nov 23, 2017 Therapy Diagnosis Therapy Diagnosis: Generalized weakness/debility Height/Weight Height (Feet): 6 Height (Inches): 1.00 Weight (Pounds): 230 Weight (Ounces): 0.0 Precautions Precautions/Isolations: Fall Prevention, Standard Precautions Weight Bear Status Right Lower Extremity: Right Full Weight Bearing Left Lower Extremity: Left Full Weight Bearing Referral Physician: Aster Reason for Referral: Evaluation/Treatment Medical History Pertinent Medical History: CAD, CVA, HTN, Hypothroidism Current History s/p right TKR revision Reviewed History: Yes Social History Home: Single Level Current Living Status: Spouse Prior/Core FIM Prior Level of Function Functional [place] Measure 0=Not Assessed/NA 4=Minimal Assistance 1=Total Assistance 5=Supervision or Setup 2=Maximal Assistance 6=Modified [place] 3=Moderate Assistance 7=Complete [place] Bed Mobility: 7 Transfers (B,C,W/C) (FIM): 7 Gait: 7 Locomotion: 7 PT Evaluation-Current Subjective Patient reports did a femoral block and his leg is waking up but not completely. Pain Numeric Pain Scale: 3 Location: Right Location Body Site: Knee Pain Description: Ache, Acute Objective Patient Orientation: Normal For Age Problem Solving: Good Attachments: IV ROM/Strength ROM Lower Extremities bilateral LE WNL Strength Lower Extremities right knee extension 1/5/flexion 3/5; hip flexion 4/5; DF/PF 4/5 left knee extension/flexion 4/5; hip flexion 4/5; DF/PF 4/5 Integumentary/Posture Integumentary refer to nursing notes Bowel Incontinence: No Bladder Incontinence: Sanchez Cath Posture WFL Neuromuscular (Tone, Coordination, Reflexes) limited tone right knee extension due to femoral block Sensory Vision: Wears Glasses Hearing: Functional Sensation Right Lower Extremit: Intact Sensation Left Lower Extremity: Intact Transfers Functional [place] Measure 0=Not Assessed/NA 4=Minimal Assistance 1=Total Assistance 5=Supervision or Setup 2=Maximal Assistance 6=Modified [place] 3=Moderate Assistance 7=Complete [place] Transfers (B, C, W/C) (FIM): 5 Scootin Rollin Supine to/from Sit: 6 Sit to/from Stand: 5 Gait Mode of Locomotion: Walk Anticipated Mode of Locomotion: Walk Gait (FIM): 4 Distance (FIM): 3=150 ft Distance: 225' Gait Level of Assist: 4 Gait Persons Needed: 1 Gait Assistive Device: FWW Comments/Gait Description slow, step to gait sequence Balance Sitting Static: Normal Sitting Dynamic: Normal Standing Static: Normal Standing Dynamic: Fair Assessment/Needs 67 y.o. male, will benefit from short term skilled PT to address functional strength and mobility to improve current LOF and to safely return to home at maximum LOF. Rehab Potential: Good PT Short Term Goals Short Term Goals Time Frame: Nov 26, 2017 Transfers (B,C,W/C) (FIM): 6 Gait (FIM): 6 Distance (FIM): 3=150 ft Gait Level of Assist: 6 Gait Assistive Device: FWW PT Plan Problem List Problem List: Functional Strength Treatment/Plan Treatment Plan: Continue Plan of Care Treatment Plan: Education, Functional Activity Arielle, Functional Strength, Gait , Safety, Therapeutic Exercise Treatment Duration: Nov 26, 2017 Frequency: 5 times per week Estimated Hrs Per Day: .5 hour per day Patient and/or Family Agrees t: Yes Safety Risks/Education Patient Education: Safety Issues Teaching Recipient: Patient Teaching Methods: Discussion Response to Teaching: Verbalize Understanding Discharge Recommendations Therapy D/C Recommendations: Home w/ Family Support, Physical Therapy Outpatient Time/GCodes Time In: 825 Time Out: 847 Total Billed Treatment Time: 22 Total Billed Treatment 1 visit EVMod 22 min ANGELIQUE PETERS PT Nov 24, 2017 09:38
[2017-11-24 12:00] VITALS: BP 126/60
--- NOTE | 2017-11-24 12:50 | Progress Note (SOAP) ---
Subjective Date Seen by Provider: Nov 24, 2017 Time Seen by Provider: 12:48 Subjective/Events-last exam Doing well today with no significant complaints. Pain currently controlled. POD #1 s/p poly exchange right knee. Objective Exam Vital Signs Date Time Temp Pulse Resp B/P (MAP) Pulse Ox O2 Delivery O2 Flow Rate FiO2 11/24/17 09:00 94 Nasal Cannula 1.00 11/24/17 08:00 98.2 90 16 133/73 (93) 94 Nasal Cannula 1.00 11/24/17 04:00 96.4 78 19 145/82 (103) 94 Nasal Cannula 2.00 11/24/17 00:00 97.8 100 18 152/74 (100) 96 Nasal Cannula 2.00 11/23/17 21:00 Nasal Cannula 2.00 11/23/17 20:00 97.9 92 20 138/73 (94) 92 Nasal Cannula 2.00 11/23/17 16:00 97.3 82 20 143/72 (95) 96 Nasal Cannula 2.00 11/23/17 14:58 Nasal Cannula 2.00 11/23/17 13:45 Nasal Cannula 2.00 11/23/17 13:40 97.2 62 16 131/84 (100) 96 Nasal Cannula 2.00 I & O 11/24/17 07:00 Intake Total 4690 ml Output Total 2400 ml Balance 2290 ml Capillary Refill : General Appearance: No Apparent Distress Cardiovascular: Regular Rate, Rhythm, No Edema Gastrointestinal: non tender, soft Extremity: Normal Capillary Refill, Normal Inspection, Normal Range of Motion, No Calf Tenderness Neurologic/Psychiatric: Alert, Oriented x3, No Motor/Sensory Deficits, Normal Mood/Affect Skin: Normal Color, Warm/Dry (dressing right knee CDI) Results Lab Laboratory Tests 11/24/17 06:52: White Blood Count 19.2H, Red Blood Count 4.38, Hemoglobin 14.2, Hematocrit 41, Mean Corpuscular Volume 94, Mean Corpuscular Hemoglobin 32, Mean Corpuscular Hemoglobin Concent 35, Red Cell Distribution Width 12.6, Platelet Count 297, Mean Platelet Volume 9.9, Sodium Level 140, Potassium Level 3.8, Chloride Level 104, Carbon Dioxide Level 24, Anion Gap 12, Blood Urea Nitrogen 12, Creatinine 0.80, Estimat Glomerular Filtration Rate > 60, BUN/Creatinine Ratio 15, Glucose Level 151H, Calcium Level 9.4 Assessment/Plan Assessment/Plan Assess & Plan/Chief Complaint A: s/p poly exchange right TKA P: Continue care plan to DC tomorrow with HHC therapy 5x/week x 2 weeks. Clinical Quality Measures DVT/VTE Risk/Contraindication: Risk Factor Score Per Nursin RFS Level Per Nursing on Admit: 3=High ANISH LYNN APRN Nov 24, 2017 12:50 pm
--- NOTE | 2017-11-24 14:53 | Physical Therapy Daily Note ---
PT Daily Note-Current Subjective Patient is very agreeable and denies right knee pain. Pain Numeric Pain Scale: 0-No Pain Location: No Pain Reported Mental Status Patient Orientation: Normal For Age Transfers Functional [place] Measure 0=Not Assessed/NA 4=Minimal Assistance 1=Total Assistance 5=Supervision or Setup 2=Maximal Assistance 6=Modified [place] 3=Moderate Assistance 7=Complete IndependenceIRFPAI Quality Coding Scale 6 Independent with activity with or without an assistive device 5 Patient requires set up or clean up by helper. Patient completes activity by themselves 4 Supervision or touching assist (CGA). [place] provide cues , steadying assist 3 The helper provides less than half the effort to complete the activity 2 The helper provides more than half the effort to complete the activity 1 Dependent. The helper does all the effort to complete an activity 7 Patient refused to complete or attempt activity 9 The patient did not perform the activity before the current illness or injury 88 Not attempted due to Medical conditions or safety concerns Transfers (B, C, W/C) (FIM): 6 Scootin Rollin Supine to/from Sit: 6 Sit to/from Stand: 6 Weight Bearing Right Lower Extremity: Right Full Weight Bearing Left Lower Extremity: Left Full Weight Bearing Gait Training Gait (FIM): 6 Distance (FIM): 3=150 ft Distance: 250' Gait Level of Assist: 6 Gait Assistive Device: FWW reciprocal pattern, safe and functional gait Exercises Supine Ex: Ankle pumps, Quad Set, Heel Slides, Straight leg raise (AAROM ) Supine Reps: 15 Treatments CPM 0-60 degrees with polar pack in place Assessment Current Status: Excellent Progress Patient progressing with treatment and will dismiss to home tomorrow. PT Short Term Goals Short Term Goals Time Frame: Nov 26, 2017 Transfers (B,C,W/C) (FIM): 6 Gait (FIM): 6 Distance (FIM): 3=150 ft Gait Level of Assist: 6 Gait Assistive Device: FWW PT Plan Treatment/Plan Treatment Plan: Continue Plan of Care Treatment Plan: Education, Functional Activity Arielle, Functional Strength, Gait , Safety, Therapeutic Exercise Treatment Duration: Nov 26, 2017 Frequency: 5 times per week Estimated Hrs Per Day: .5 hour per day Patient and/or Family Agrees t: Yes Time/GCodes Time In: 1411 Time Out: 142 Total Billed Treatment Time: 15 Total Billed Treatment 1 visit FA 15 min CPM PADS ANGELIQUE PETRES PT Nov 24, 2017 14:53
--- NOTE | 2017-11-24 15:18 | Occ Therapy Progress Note ---
Therapy Progress Note OT order received. Chart reviewed. Went into pt's room and spoke with him in depth. Pt. is moving well and has been up multiple times. Pt. has also had knee surgery before, and knows what to expect. Pt. has no concerns, and is able to reach his feet, don socks, and toilet self. He has been up ambulating to toilet, and in hallway. Pt. reports that he does not feel that he needs OT services at this time. All needs were met in his room. Pt. is educated that if he should have a question regarding how to complete a functional task with his current injury, to let nursing know and OT would be happy to come back and educate him. All needs met in room. [id number] 1, visit No OT needs at this time [place] OT services QUANG WREN OT Nov 24, 2017 15:18
[2017-11-24 16:00] VITALS: BP 155/80
[2017-11-24] MEDS: TAMSULOSIN 0.4 MG (FLOMAX) CAP PO SCH (17:46)
[2017-11-24] MEDS: oxyCODONE/APAP 10/325MG (PERCOCET 10) TABLET PO PRN ×2 (18:13→21:50)
--- NOTE | 2017-11-24 18:56 | Consultation ---
History of Present Illness History of Present Illness Patient Consulted On(francoise/time) 11/24/17 18:49 Date Seen by Provider: Nov 24, 2017 Time Seen by Provider: 12:35 History of Present Illness This is a 67 year old male who underwent a right knee poly exchange by Dr. Rodarte on 11/23/17. He is doing well with pain well controlled. I am asked to consult for medical management due to his history of hypertension, CAD, hypothyroidism and anxiety. Allergies and Home Medications Allergies Coded Allergies: Iodinated Contrast- Oral and IV Dye (Verified Allergy, Unknown, 06/14/07) codeine (Verified Allergy, Unknown, 06/14/07) fexofenadine (Verified Allergy, Unknown, 06/14/07) hydrocodone (Verified Allergy, Unknown, 11/09/17) Home Medications Ascorbic Acid 1,000 Mg Tablet, 1,000 MG PO DAILY, (Reported) Aspirin 81 Mg Tablet.dr, 81 MG PO DAILY, (Reported) Atorvastatin Calcium 80 Mg Tablet, 80 MG PO HS, (Reported) Baclofen 10 Mg Tablet, 10 MG PO BID, (Reported) Cholecalciferol (Vitamin D3) 5,000 Unit Tablet, 5,000 UNIT PO DAILY, (Reported) Clopidogrel Bisulfate 75 Mg Tablet, 75 MG PO DAILY, (Reported) Levothyroxine Sodium 112 Mcg Tablet, 112 MCG PO DAILY, (Reported) Magnesium Oxide 400 Mg Tablet, 400 MG PO HS, (Reported) Metoprolol Succinate 25 Mg Tab.er.24h, 12.5 MG PO BID, (Reported) take 1/2 of 25mg tab Multivits,Ca,Min/Iron/FA/Lycop 1 Each Tablet, 1 EACH PO DAILY, (Reported) Vitamin E Acetate 1,000 Unit Capsule, 1,000 UNIT PO DAILY, (Reported) Past Wsowzde-Izbxwf-Vytabj Hx Patient Social History Alcohol Use: Occasionally Uses Recreational Drug Use: No Smoking Status: Former Smoker Former Smoker, Quit: Nov 09, 1980 Recent Foreign Travel: No Contact w/Someone Who Travel: No Recent Infectious Disease Expo: No Recent Hopitalizations: No Immunizations Up To Date Date of Pneumonia Vaccine: Feb 07, 2016 Date of Influenza Vaccine: Aug 08, 2015 Seasonal Allergies Seasonal Allergies: No Surgeries History of Surgeries: Yes (R TKR, CATARACT REMOVAL, ESOPHAGEAL REPAIR, MULTIPLE HEART CATHS) Respiratory History of Respiratory Disorde: No Cardiovascular History of Cardiac Disorders: Yes (RIGHT BUNDLE BRANCH BLOCK) Neurological History of Neurological Disord: Yes (TIA in 2012) Reproductive System Hx Reproductive Disorders: No Sexually Transmitted Disease: No Genitourinary History of Genitourinary Disor: Yes Genitourinary Disorders: Kidney Stones Gastrointestinal History of Gastrointestinal Di: Yes (ESOPHAGEAL REPAIR) Gastrointestinal Disorders: Gastroesophageal Reflux, Esophagitis Musculoskeletal History of Musculoskeletal Dis: Yes (R knee instability) Musculoskeletal Disorders: Arthritis Endocrine History of Endocrine Disorders: Yes Endocrine Disorders: Hypothyroidsim HEENT History of HEENT Disorders: No Loss of Vision: Denies Cancer History of Cancer: No Psychosocial History of Psychiatric Problem: No Integumentary History of Skin or Integumenta: No Blood Transfusions History of Blood Disorders: No Adverse Reaction to a Blood Tr: No Family Medical History Family Medial History: Cardiovascular disease 19 MOTHER Myocardial infarction 19 MOTHER Review of Systems-General Constitutional: No no symptoms reported, No see HPI, No chills, No diaphoresis , No dizziness, No fever, No malaise, No weakness, No weight gain, No weight loss, No other EENTM: No see HPI, No no symptoms reported, No ear discharge, No hearing loss, No ear pain, No blurred vision, No double vision, No eye pain, No tearing, No vision loss, No dental problems, No hoarseness, No mouth pain, No mouth swelling , No epistaxis, No nose congestion, No nose pain, No throat pain, No throat swelling, No other Respiratory: No no symptoms reported, No see HPI, No cough, No dyspnea on exertion, No hemoptysis, No orthopnea, No phlegm, No short of breath, No stridor , No wheezing, No other Cardiovascular: No no symptoms reported, No see HPI, No chest pain, No edema, No Hx of Intervention, No palpitations, No syncope, No vascular heart diseas, No other Gastrointestinal: No RUQ, No LUQ, No RLQ, No LLQ, No no symptoms reported, No see HPI, No abdominal pain, No constipation, No diarrhea, No dysphagia, No hematemesis, No heartburn, No jaundice, No loss of appetite, No melena, No nausea, No vomiting, No other Genitourinary: hesitancy (recently passed stones) Musculoskeletal: neck pain Skin: No no symptoms reported, No see HPI, No change in color, No change in hair/nails, No dryness, No hx of skin cancer, No lesions, No lumps, No pruritus , No rash, No other Psychiatric/Neurological: Depressed (stable) Physical Exam-General Problems Physical Exam Vital Signs Vital Sign - Last 12Hours 11/23/17 13:40 Temp 97.2 Pulse 62 Resp 16 B/P (MAP) 131/84 (100) Pulse Ox 96 O2 Delivery Nasal Cannula O2 Flow Rate 2.00 Capillary Refill : General Appearance: no apparent distress HEENT: normal ENT inspection Neck: supple Respiratory: lungs clear Cardiovascular: regular rate, rhythm, gallop/S4 Gastrointestinal: normal bowel sounds, non tender, soft Back: no CVA tenderness Extremities: non-tender, no pedal edema, no calf tenderness Neurologic/Psychiatric: sharepoint developer II-XII nml as tested, alert, normal mood/affect, oriented x 3 Skin: normal color, warm/dry, other (right knee with dry dressing in place) Assessment/Plan Assessment/Plan Admission Diagnosis/Plan 1. Hypertension--resume home medications 2. Hypothyroidism--resume levothyroxine 3. Depression--stable, resume home meds 4. Recent renal stone with urinary retention--remove catheter and monitor urine output 5. S/P Right poly knee exchange--doing well with pain control and PT, DC plans per ortho Clinical Quality Measures DVT/VTE Risk/Contraindication: Risk Factor Score Per Nursin RFS Level Per Nursing on Admit: 3=High LISY BARILLAS DO Nov 24, 2017 6:56 pm
[2017-11-24 20:00] VITALS: BP 152/89
[2017-11-24] MEDS: BACLOFEN 10 MG (LIORESAL) TAB PO SCH (20:37)
[2017-11-24] MEDS: SENNA W/DOCUSATE (SENOKOT S) TABLET PO SCH (20:38)
[2017-11-24] MEDS ORDERED: ATORVASTATIN 80 MG (LIPITOR) TABLET PO SCH (21:00)
[2017-11-24] MEDS ORDERED: MAGNESIUM OXIDE (MAG-OX)400 MG TAB PO SCH (21:00)
[2017-11-25] VITALS: BP 149/90
[2017-11-25 04:00] VITALS: BP 149/76
[2017-11-25] MEDS: oxyCODONE/APAP 10/325MG (PERCOCET 10) TABLET PO PRN ×2 (04:26→12:37)
[2017-11-25] MEDS ORDERED: LEVOTHYROXINE 112 MCG (LEVOTHROID) TAB PO SCH (06:30)
[2017-11-25 06:43] LABS: HEMOGLOBIN 12.8 G/DL (13.3-17.7); MEAN PLATELET VOLUME 9.7 FL (7.4-10.4); RED BLOOD COUNT 4.02 10^6/uL (4.35-5.85); RED CELL DISTRIBUTION WIDTH 13.1 % (10.0-14.5); WHITE BLOOD COUNT 11.4 10^3/uL (4.3-11.0)
[2017-11-25] MEDS ORDERED: MULTIVIT W/MINERALS TAB (THERAGRAN M) PO SCH (07:00)
--- NOTE | 2017-11-25 07:16 | Progress Note (SOAP) ---
Subjective Date Seen by Provider: Nov 25, 2017 Time Seen by Provider: 07:14 Subjective/Events-last exam Currently no complaints, pain controlled with meds. Catheter removed yesterday and he is voiding well. Objective Exam Vital Signs Date Time Temp Pulse Resp B/P (MAP) Pulse Ox O2 Delivery O2 Flow Rate FiO2 11/25/17 04:00 97.3 71 20 149/76 (100) 96 Room Air 11/25/17 00:00 97.2 69 20 149/90 (109) 95 Room Air 11/24/17 20:30 Room Air 11/24/17 20:00 98.2 80 20 152/89 (110) 95 Room Air 11/24/17 16:00 97.6 89 20 155/80 (105) 94 Room Air 11/24/17 12:00 98.5 76 20 126/60 (82) 94 Room Air 11/24/17 09:00 94 Nasal Cannula 1.00 11/24/17 08:00 98.2 90 16 133/73 (93) 94 Nasal Cannula 1.00 I & O 11/25/17 07:00 Intake Total 4340 ml Output Total 3200 ml Balance 1140 ml Capillary Refill : General Appearance: No Apparent Distress Respiratory: Lungs Clear, No Accessory Muscle Use, No Respiratory Distress Cardiovascular: Regular Rate, Rhythm, No Edema, No JVD, Normal Peripheral Pulses Peripheral Pulses: 2+ Dorsalis Pedis (R), 2+ Left Dors-Pedis (L), 2+ Radial Pulses (R), 2+ Radial Pulses (L) Gastrointestinal: non tender, soft Extremity: Normal Capillary Refill, Normal Inspection, No Calf Tenderness, No Pedal Edema Neurologic/Psychiatric: Alert, Oriented x3, No Motor/Sensory Deficits, Normal Mood/Affect Skin: Normal Color, Warm/Dry (dressing right knee CDI) Results Lab Laboratory Tests 11/25/17 06:08: White Blood Count 11.4H, Red Blood Count 4.02L, Hemoglobin 12.8L, Hematocrit 38L , Mean Corpuscular Volume 95, Mean Corpuscular Hemoglobin 32, Mean Corpuscular Hemoglobin Concent 34, Red Cell Distribution Width 13.1, Platelet Count 262, Mean Platelet Volume 9.7 Assessment/Plan Assessment/Plan Assess & Plan/Chief Complaint A: s/p poly exchange right TKA P: Continue care plan to DC today with Home healthcare therapy 5x/week x 2 weeks. [facility] to remove brittney and apply steri strips in 7 days Clinical Quality Measures DVT/VTE Risk/Contraindication: Risk Factor Score Per Nursin RFS Level Per Nursing on Admit: 3=High ANISH LYNN APRN Nov 25, 2017 7:15 am
[2017-11-25] MEDS ORDERED: SENN-20 PO (07:18)
[2017-11-25] MEDS ORDERED: TAMS0.4C98 PO (07:18)
[2017-11-25] MEDS ORDERED: OXYC-465 PO (07:18)
--- NOTE | 2017-11-25 07:22 | D/C HH Face to Face Order ---
D/C Face to Face Orders Instructions for Patient Patient Instructions/FollowUp: f/u 2 1/[address] Rodarte's TKA DC instructions Physician to follow Patient: Aster Discharge Diet for Home: No Restrictions Patient Problems: s/p poly exchange revision right TKA right knee instability and pain Goals for Patient: independence with ADL Patient Data-Allergies,Ht & Wt Patient Allergies: Coded Allergies: Iodinated Contrast- Oral and IV Dye (Verified Allergy, Unknown, 06/14/07) codeine (Verified Allergy, Unknown, 06/14/07) fexofenadine (Verified Allergy, Unknown, 06/14/07) hydrocodone (Verified Allergy, Unknown, 11/09/17) Height (Feet): 6 Height (Inches): 1.00 Weight (Pounds): 230 Weight (Ounces): 0.0 Home Health Need/Face to Face Date of Face to Face: Nov 25, 2017 Clinical Findings: Instability, Muscle weakness, Pain with ambulation, Unsteady gait I have seen Pt [id number]: Yes Discharged To: Home Diagnosis/Conditions: s/p poly exchange revision right TKA right knee instability and pain Problems/Diagnosis/Condition: (1) Mechanical instability of knee prosthesis (2) Painful total knee replacement, right Patient is Homebound due to: Marlen fall risk due to instabilty, Muscle weakness , Pain w/ambulation Homebound Status Due to the above stated illness, injury or surgical procedure (medical condition or diagnosis) and associated clinical findings, the patient is homebound because of his/her inability to leave home except with aid of a supportive device and/or person AND leaving the home requires a considerable and taxing effort or is medically contraindicated. Pt req the following assistanc: [facility] Nursing Orders Home Health Services Order: Nursing Services, Physical Therapy-Evaluate & Treat physical therapy 5x/week x 2 weeks to assist with ambulation and treat ROM remove brittney and apply steri strips on 12/03/17 Home Health Infusion Therapy Line Start Date: Nov 23, 2017 Line Start Time: 1100 Line Type: Saline Lock Site Location: Forearm Therapy Orders Therapy Orders: Physical Therapy Therapy Specific Orders: Gait training, Increase strength/endurance, Restore ROM Certify Stmt I certify that this patient is under my care and that I, a nurse practitioner or a physician; a talent assistant working with me, had a face to face encounter that - meets the physician face to face encounter requirements with this patient as dated. ANISH LYNN APRN Nov 25, 2017 7:22 am
[2017-11-25 07:25] LABS: BUN/CREATININE RATIO 15; CALCIUM 8.5 MG/DL (8.5-10.1); CARBON DIOXIDE 26 MMOL/L (21-32); CHLORIDE 106 MMOL/L (98-107); CREATININE SERUM 0.81 MG/DL (0.60-1.30); GFR ESTIMATED > 60; GLUCOSE 88 MG/DL (70-105); POTASSIUM 3.8 MMOL/L (3.6-5.0); SODIUM 143 MMOL/L (135-145)
--- NOTE | 2017-11-25 07:29 | Discharge Summary ---
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 He had increased symptoms of pain and hyperextension after this injury. His knee was loose on exam. Therefore he was scheduled for exchange of poly to gain stability. Discharge Summary Procedures: polyethylene exchange right total knee arthroplasty Consultations Dr. Michel Discharge Physical Examination Allergies: Coded Allergies: Iodinated Contrast- Oral and IV Dye (Verified Allergy, Unknown, 06/14/07) codeine (Verified Allergy, Unknown, 06/14/07) fexofenadine (Verified Allergy, Unknown, 06/14/07) hydrocodone (Verified Allergy, Unknown, 11/09/17) Vitals & I&Os Vital Signs Date Time Temp Pulse Resp B/P (MAP) Pulse Ox O2 Delivery O2 Flow Rate FiO2 11/25/17 04:00 97.3 71 20 149/76 (100) 96 Room Air 11/24/17 09:00 1.00 General Appearance: Alert, Oriented X3 HEENT: PERRLA Respiratory: Clear to Auscultation Cardiovascular: Regular Rate Abdominal: Normal Bowel Sounds, Soft, No Tenderness Extremities: No Clubbing, No Cyanosis, No Edema, Normal Pulses Skin: No Rashes, Other (dressing right knee CDI) Neuro: Normal Gait, Normal Speech Psych/Mental Status: Mental Status NL Hospital Course The patient had failed conservative treatment. On the date of admission he was taken to the OR and the above procedure was performed without complications. Postoperatively he was maintained on DVT prophylaxis and IV antibiotic prophylaxis. Overall, his stay postoperatively was uneventful and he progressed well. He was discharged to home with home healthcare. Pending Labs Laboratory Tests 11/25/17 06:08: White Blood Count 11.4, Red Blood Count 4.02, Hemoglobin 12.8, Hematocrit 38, Mean Corpuscular Volume 95, Mean Corpuscular Hemoglobin 32, Mean Corpuscular Hemoglobin Concent 34, Red Cell Distribution Width 13.1, Platelet Count 262, Mean Platelet Volume 9.7, Sodium Level [Pending], Potassium Level [Pending], Chloride Level [Pending], Carbon Dioxide Level [Pending], Anion Gap [Pending], Blood Urea Nitrogen [Pending], Creatinine [Pending], BUN/Creatinine Ratio [ Pending], Glucose Level [Pending], Calcium Level [Pending] Discharge Condition at discharge good Instructions to patient/family Please see electronic discharge instructions given to patient. Discharge Medications Reviewed and agree with Discharge Medication list on patient's Discharge Instruction sheet Clinical Quality Measures DVT/VTE Risk/Contraindication: Risk Factor Score Per Nursin RFS Level Per Nursing on Admit: 3=High ANISH LYNN APRN Nov 25, 2017 7:29 am
[2017-11-25 08:00] VITALS: BP 153/87
[2017-11-25] MEDS: BACLOFEN 10 MG (LIORESAL) TAB PO SCH (08:17)
[2017-11-25] MEDS: ENOXAPARIN 40 MG/0.4 ML (LOVENOX) SYR SC SCH (08:17)
[2017-11-25] MEDS: SENNA W/DOCUSATE (SENOKOT S) TABLET PO SCH (08:17)
[2017-11-25] MEDS ORDERED: ASPIRIN E.C. 81 MG (ECOTRIN) TAB PO SCH (09:00)
[2017-11-25] MEDS ORDERED: CLOPIDOGREL 75 MG (PLAVIX) TABLET PO SCH (09:00)
[2017-11-25] MEDS ORDERED: VITAMIN D3 5,000 UNITS (CHOLECALCIFEROL ) CAPSULE PO SCH (09:00)
--- NOTE | 2017-11-25 09:26 | Physical Therapy Daily Note ---
PT Daily Note-Current Subjective Patient has increase c/o right knee pain. Pain Numeric Pain Scale: 7 Location: Right Location Body Site: Knee Pain Description: Acute Mental Status Patient Orientation: Normal For Age Transfers Functional [place] Measure 0=Not Assessed/NA 4=Minimal Assistance 1=Total Assistance 5=Supervision or Setup 2=Maximal Assistance 6=Modified [place] 3=Moderate Assistance 7=Complete IndependenceIRFPAI Quality Coding Scale 6 Independent with activity with or without an assistive device 5 Patient requires set up or clean up by helper. Patient completes activity by themselves 4 Supervision or touching assist (CGA). [place] provide cues , steadying assist 3 The helper provides less than half the effort to complete the activity 2 The helper provides more than half the effort to complete the activity 1 Dependent. The helper does all the effort to complete an activity 7 Patient refused to complete or attempt activity 9 The patient did not perform the activity before the current illness or injury 88 Not attempted due to Medical conditions or safety concerns Transfers (B, C, W/C) (FIM): 6 Scootin Supine to/from Sit: 6 Sit to/from Stand: 6 Weight Bearing Right Lower Extremity: Right Full Weight Bearing Left Lower Extremity: Left Full Weight Bearing Gait Training Gait (FIM): 6 Distance (FIM): 3=150 ft Distance: 500' Gait Level of Assist: 6 Gait Assistive Device: FWW reciprocal pattern Exercises Supine Ex: Ankle pumps, Quad Set, Heel Slides, Straight leg raise Supine Reps: 15 Seated Therapy Exercises: Long arc quads Seated Reps: 15 Treatments CPM 0-70 degrees with polar pack in place Assessment Current Status: Excellent Progress Patient to dismiss to home on this date. Patient is currently at [facility] with all gross motor skills safely. PT to dismiss patient from services at this time. PT Short Term Goals Short Term Goals Time Frame: Nov 26, 2017 Transfers (B,C,W/C) (FIM): 6 Gait (FIM): 6 Distance (FIM): 3=150 ft Gait Level of Assist: 6 Gait Assistive Device: FWW PT Plan Treatment/Plan Treatment Plan: Discontinue PT, goals met Treatment Plan: Education, Functional Activity [place], Functional Strength, Gait , Safety, Therapeutic Exercise Treatment Duration: Nov 26, 2017 Frequency: 5 times per week Estimated Hrs Per Day: .5 hour per day Patient and/or Family Agrees t: Yes Time/GCodes Time In: 901 Time Out: 917 Total Billed Treatment Time: 16 Total Billed Treatment 1 visit FA 16 min ANGELIQUE PETERS PT Nov 25, 2017 09:25
[2017-11-25] MEDS ORDERED: INFLUENZA TRIvalent 2017-2018 0.5 ML/45 MCG SYR IM ONE (11:10)
--- NOTE | 2017-11-25 18:23 | Progress Note (SOAP) ---
Subjective Date Seen by Provider: Nov 25, 2017 Time Seen by Provider: 12:45 Subjective/Events-last exam Fwup HTN, Hypothyroidism, Depression, Recent renal stone, S/P right total knee poly exchange. Epidural is wearing off so has more knee pain today. No problems urinating since catheter was removed. Going home today per ortho. Objective Exam Vital Signs Date Time Temp Pulse Resp B/P (MAP) Pulse Ox O2 Delivery O2 Flow Rate FiO2 11/25/17 08:45 Room Air 11/25/17 08:00 97.5 74 18 153/87 (109) 97 Room Air 11/25/17 04:00 97.3 71 20 149/76 (100) 96 Room Air 11/25/17 00:00 97.2 69 20 149/90 (109) 95 Room Air 11/24/17 20:30 Room Air 11/24/17 20:00 98.2 80 20 152/89 (110) 95 Room Air I & O 11/25/17 07:00 Intake Total 4340 ml Output Total 3200 ml Balance 1140 ml Capillary Refill : General Appearance: No Apparent Distress Neck: Supple Respiratory: Lungs Clear Cardiovascular: Regular Rate, Rhythm Gastrointestinal: normal bowel sounds, non tender, soft Extremity: Non Tender, No Calf Tenderness, No Pedal Edema Neurologic/Psychiatric: Alert, Oriented x3 Skin: Other (Right knee dressing in place and dry) Results Lab Laboratory Tests 11/25/17 06:08: White Blood Count 11.4H, Red Blood Count 4.02L, Hemoglobin 12.8L, Hematocrit 38L , Mean Corpuscular Volume 95, Mean Corpuscular Hemoglobin 32, Mean Corpuscular Hemoglobin Concent 34, Red Cell Distribution Width 13.1, Platelet Count 262, Mean Platelet Volume 9.7, Sodium Level 143, Potassium Level 3.8, Chloride Level 106, Carbon Dioxide Level 26, Anion Gap 11, Blood Urea Nitrogen 12, Creatinine 0.81, Estimat Glomerular Filtration Rate > 60, BUN/Creatinine Ratio 15, Glucose Level 88, Calcium Level 8.5 Assessment/Plan Assessment/Plan Assess & Plan/Chief Complaint 1. Hypertension--stable home medications 2. Hypothyroidism--stable on levothyroxine 3. Depression--stable on home meds 4. Recent renal stone with urinary retention--removed catheter and urine output good 5. S/P Right poly knee exchange--doing well with pain control and PT, DC plans per ortho today Clinical Quality Measures DVT/VTE Risk/Contraindication: Risk Factor Score Per Nursin RFS Level Per Nursing on Admit: 3=High LISY BARILLAS DO Nov 25, 2017 6:23 pm
== END 2017-11-25 12:50 | disposition home health service (06) | DRG 468 ==
LOC: 4TH 10:28 → SURG 10:29 → 4TH 13:54
PROVIDERS: ADMIT Orthopaedic Surgery; ATTEND Orthopaedic Surgery
PROC: 0SPV0JZ Removal of Synthetic Substitute from Right Knee Joint, Tibial Surface, Open Approach (ICD-10-PCS; 2017-11-23)
PROC: 0SRV0JA Replacement of Right Knee Joint, Tibial Surface with Synthetic Substitute, Uncemented, Open Approach (ICD-10-PCS; principal; 2017-11-23 11:50)
DX: T84.022A Instability of internal right knee prosthesis, initial encounter (principal); I25.10 Atherosclerotic heart disease of native coronary artery without angina pectoris; I10 Essential (primary) hypertension; E78.00 Pure hypercholesterolemia, unspecified; E03.9 Hypothyroidism, unspecified; F32.9 Major depressive disorder, single episode, unspecified; Z86.73 Personal history of transient ischemic attack (TIA), and cerebral infarction without residual deficits; Z79.02 Long term (current) use of antithrombotics/antiplatelets; Z79.82 Long term (current) use of aspirin; Z87.891 Personal history of nicotine dependence
CPT/HCPCS: 36415; 73560; 80048; 85027; 86850; 86900; 86901; 94664

== ENCOUNTER → 2018-01-19 | Outpatient (CLI) | payer BC ==
[~2018-01-19] MED LIST changes: +OXYC-465 PO; +SENN-20 PO
[2018-01-19 09:30] LABS: BUN/CREATININE RATIO 14; CALCIUM 9.2 MG/DL (8.5-10.1); CARBON DIOXIDE 27 MMOL/L (21-32); CHLORIDE 104 MMOL/L (98-107); CREATININE SERUM 0.84 MG/DL (0.60-1.30); GFR ESTIMATED > 60; GLUCOSE 101 MG/DL (70-105); POTASSIUM 3.6 MMOL/L (3.6-5.0); SODIUM 140 MMOL/L (135-145)
== END ==
LOC: LAB 08:58
PROVIDERS: ATTEND Nurse Practitioner Family
DX: R06.02 Shortness of breath (principal)
CPT/HCPCS: 36415; 80048

== ENCOUNTER → 2018-01-20 | Outpatient (CLI) | payer BC, MEDICARE ==
[~2018-01-20] MED LIST changes: +CATHETER FLUSH 10 ML SYR IV PRN; +IOHEXOL 350 MG/ML 150 ML (OMNIPAQUE 350) VIAL IV ONE; +NS 250 ML (IVPB) BAG IV ONE; +RECEIVED CONTRAST (Hold Metformin) IV SCH
--- NOTE | 2018-01-20 10:52 | Diagnostic Imaging Report ---
PROCEDURE: CT angiography of the chest with contrast. TECHNIQUE: Multiple contiguous axial images were obtained through the chest after uneventful bolus administration of intravenous contrast. Reconstructed CTA MIP acquisitions were also performed. INDICATION: Shortness of breath. FINDINGS: The previous CTA chest exam performed on 01/15/2016 failed to show any sign of a pulmonary embolus or of a dissection. On this study, there is still no defect within the pulmonaries to indicate a pulmonary embolus. The aorta is not abnormally dilated and there is no sign of dissection. The heart size is within normal limits. There are only sparse, if any, coronary artery calcifications evident. The lungs are clear. There is no sign of failure, pneumonia or pleural effusion. There is mild scar formation again evident in the right middle lobe. There is no mediastinal or hilar adenopathy. Thyroid gland is generally unremarkable. The sections through the upper abdomen again show the liver is of lower density than usually seen. This does suggest fatty metamorphosis. The benign-appearing cyst along the medial aspect of the right kidney seen previously is again evident and no different. The bone windows show no sign of a fracture or of a destructive lesion. Impression: 1. There is no evidence for an acute cardiopulmonary abnormality. In particular, there is no sign of a dissection or of a pulmonary embolus. When compared with the previous study, there does not appear to have been any significant change. 2. 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 Dictated by: Dictated on workstation # [id number]
== END ==
LOC: RAD 08:56
PROVIDERS: ATTEND Nurse Practitioner Family
DX: R06.02 Shortness of breath (principal)
CPT/HCPCS: 71275

== ENCOUNTER 2018-03-14 15:30 | Outpatient (RCR) | payer BC ==
[~2018-03-14 15:30] MED LIST changes: -CATHETER FLUSH 10 ML SYR IV PRN; -IOHEXOL 350 MG/ML 150 ML (OMNIPAQUE 350) VIAL IV ONE; -NS 250 ML (IVPB) BAG IV ONE; -RECEIVED CONTRAST (Hold Metformin) IV SCH
== END 2018-04-13 | disposition home or self-care (01) ==
LOC: CR3 15:30
PROVIDERS: ATTEND Internal Medicine Cardiovascular Disease
DX: Z29.8 Encounter for other specified prophylactic measures (principal)

== ENCOUNTER → 2018-06-24 | Outpatient (RCR) | payer BC | END | disposition home or self-care (01) | LOC: CR3 05-25 16:06 | PROVIDERS: ATTEND Internal Medicine Cardiovascular Disease | DX: Z29.8 Encounter for other specified prophylactic measures (principal) ==

== ENCOUNTER → 2018-07-27 | Outpatient (RCR) | payer BC | END | disposition home or self-care (01) | LOC: CR3 06-27 15:52 | PROVIDERS: ATTEND Internal Medicine Cardiovascular Disease | DX: Z29.8 Encounter for other specified prophylactic measures (principal) ==

== ENCOUNTER 2018-08-19 15:10 | Outpatient (RCR) | payer BC | END 2018-08-28 | disposition home or self-care (01) | LOC: CR3 15:10 | PROVIDERS: ATTEND Internal Medicine Cardiovascular Disease | DX: Z29.8 Encounter for other specified prophylactic measures (principal) ==

== ENCOUNTER 2018-09-26 18:23 | Outpatient (RCR) | payer BC | END 2018-09-30 | disposition home or self-care (01) | LOC: CR3 18:23 | PROVIDERS: ATTEND Internal Medicine Cardiovascular Disease | DX: Z29.8 Encounter for other specified prophylactic measures (principal) ==

== ENCOUNTER 2018-10-24 15:47 | Outpatient (RCR) | payer BC | END 2018-11-02 | disposition home or self-care (01) | LOC: CR3 15:47 | PROVIDERS: ATTEND Internal Medicine Cardiovascular Disease | DX: Z29.8 Encounter for other specified prophylactic measures (principal) ==

== ENCOUNTER 2018-12-05 14:55 | Outpatient (RCR) | payer BC | END 2018-12-09 | disposition home or self-care (01) | LOC: CR3 14:55 | PROVIDERS: ATTEND Internal Medicine Cardiovascular Disease | DX: Z29.8 Encounter for other specified prophylactic measures (principal) ==

== ENCOUNTER 2019-01-06 15:32 | Outpatient (RCR) | payer BC | END 2019-01-13 | disposition home or self-care (01) | LOC: CR3 15:32 | PROVIDERS: ATTEND Internal Medicine Cardiovascular Disease | DX: Z29.8 Encounter for other specified prophylactic measures (principal) ==

== ENCOUNTER → 2019-01-30 | Outpatient (CLI) | payer BC | LOC: RT 08:22 | PROVIDERS: ATTEND Family Medicine | DX: R06.00 Dyspnea, unspecified (principal) | CPT/HCPCS: 94060; 94726; 94729 ==

== ENCOUNTER 2019-02-01 15:18 | Outpatient (RCR) | payer BC | END 2019-02-15 | disposition home or self-care (01) | LOC: CR3 15:18 | PROVIDERS: ATTEND Internal Medicine Cardiovascular Disease | DX: Z29.8 Encounter for other specified prophylactic measures (principal) ==

== ENCOUNTER → 2019-04-07 | Outpatient (RCR) | payer BC | END | disposition home or self-care (01) | LOC: CR3 03-08 16:30 | PROVIDERS: ATTEND Internal Medicine Cardiovascular Disease | DX: Z29.8 Encounter for other specified prophylactic measures (principal) ==

== ENCOUNTER 2019-05-08 15:01 | Outpatient (RCR) | payer BC | END 2019-05-10 | disposition home or self-care (01) | LOC: CR3 15:01 | PROVIDERS: ATTEND Internal Medicine Cardiovascular Disease | DX: Z29.8 Encounter for other specified prophylactic measures (principal) ==

== ENCOUNTER → 2019-06-14 | Outpatient (RCR) | payer BC | END | disposition home or self-care (01) | LOC: CR3 05-15 14:00 | PROVIDERS: ATTEND Internal Medicine Cardiovascular Disease | DX: Z01.818 Encounter for other preprocedural examination (principal) ==

== ENCOUNTER 2019-07-26 09:00 | Outpatient (RCR) | payer BC | END 2019-08-25 | disposition home or self-care (01) | LOC: CR3 09:00 | PROVIDERS: ATTEND Internal Medicine Cardiovascular Disease | DX: Z29.8 Encounter for other specified prophylactic measures (principal) ==

== ENCOUNTER 2019-10-13 14:14 | Outpatient (RCR) | payer BC ==
[~2019-10-13 14:14] MED LIST changes: -MAGN400T6 PO; +MAGN400T8 PO; -METO-387 PO; -TAMS0.4C98 PO; +TMSL.4C PO
== END 2019-10-15 | disposition home or self-care (01) ==
LOC: CR3 14:14
PROVIDERS: ATTEND Internal Medicine Cardiovascular Disease
DX: Z29.8 Encounter for other specified prophylactic measures (principal)

== ENCOUNTER 2019-10-25 15:07 | Outpatient (RCR) | payer BC ==
[~2019-10-25 15:07] MED LIST changes: +MAGN400T6 PO; -MAGN400T8 PO; +METO-387 PO; +TAMS0.4C98 PO; -TMSL.4C PO
== END 2019-11-17 | disposition home or self-care (01) ==
LOC: CR3 15:07
PROVIDERS: ATTEND Internal Medicine Cardiovascular Disease
DX: Z29.8 Encounter for other specified prophylactic measures (principal)

== ENCOUNTER → 2019-10-27 | Outpatient (CLI) | payer BC ==
--- NOTE | 2019-10-27 09:49 | Diagnostic Imaging Report ---
PROCEDURE: US Gallbladder. TECHNIQUE: Multiple real-time grayscale images were obtained over the right upper quadrant in various projections. INDICATION: Right upper quadrant pain. FINDINGS: The previous gallbladder ultrasound exam 03/20/2010 failed to show any sign of an acute abnormality. On this exam there are is still no evidence for cholelithiasis. The gallbladder wall does seem slightly thickened in some places but there is no pericholecystic fluid to indicate acute cholecystitis. The common bile duct is not well-visualized. The liver is homogeneous and not enlarged. There is no focal mass involving the liver and the biliary tree is not abnormally dilated. Spectral and color-flow imaging of the portal vein shows that the vein is patent. There is a 3.9 x 3.6 x 3.5 cm cyst along the superior pole of the right kidney and a 3.5 x 3.4 x 2.7 cm cyst along the inferior pole. These cysts are generally benign in appearance. The right kidney is otherwise unremarkable. The aorta, the inferior vena cava and the pancreas were not well-visualized. There is no mass or free fluid collection evident. IMPRESSION: 1. There is no evidence for cholelithiasis. The gallbladder wall does seem slightly thickened in some segments of the wall but there is no pericholecystic fluid to indicate acute cholecystitis. 2. If clinical concern regarding an acute abnormality of the gallbladder persists, then a nuclear medicine hepatobiliary scan would be recommended for further study. 3. There are cysts associated with the right kidney. Dictated by: Dictated on workstation # [id number]
== END ==
LOC: RAD 07:40
PROVIDERS: ATTEND Family Medicine
DX: N28.1 Cyst of kidney, acquired (principal); R10.11 Right upper quadrant pain
CPT/HCPCS: 76705

== ENCOUNTER → 2019-11-16 | Outpatient (CLI) | payer BC ==
[~2019-11-16] MED LIST changes: +CATHETER FLUSH 10 ML SYR IV PRN
--- NOTE | 2019-11-16 13:49 | Diagnostic Imaging Report ---
INDICATION: Right upper quadrant pain. TECHNIQUE: Patient was administered 5.4 mCi technetium 99m Choletec intravenously and imaging over the abdomen was performed. After 45 minutes, patient ingested one can of Ensure and a gallbladder ejection fraction was calculated. FINDINGS: There is homogeneous uptake of activity by the liver with prompt excretion of activity into the gallbladder and common duct. Normal passage of activity into the small bowel is noted. Gallbladder ejection fraction is normal at 39%. IMPRESSION: Normal HIDA scan and gallbladder ejection fraction. Dictated by: Dictated on workstation # [id number]
== END ==
LOC: CARD 11:14
PROVIDERS: ATTEND Family Medicine
DX: R10.11 Right upper quadrant pain (principal)
CPT/HCPCS: 78227

== ENCOUNTER 2019-12-20 14:39 | Outpatient (RCR) | payer BC ==
[~2019-12-20 14:39] MED LIST changes: -CATHETER FLUSH 10 ML SYR IV PRN; -MAGN400T6 PO; +MAGN400T8 PO; -METO-387 PO; -TAMS0.4C98 PO; +TMSL.4C PO
== END 2019-12-22 | disposition home or self-care (01) ==
LOC: CR3 14:39
PROVIDERS: ATTEND Internal Medicine Cardiovascular Disease
DX: Z29.8 Encounter for other specified prophylactic measures (principal)

== ENCOUNTER 2020-01-05 13:55 | Outpatient (RCR) | payer BC | END 2020-01-28 | disposition home or self-care (01) | LOC: CR3 13:55 | PROVIDERS: ATTEND Internal Medicine Cardiovascular Disease | DX: Z29.8 Encounter for other specified prophylactic measures (principal) ==

== ENCOUNTER → 2020-01-05 | Outpatient (CLI) | payer BC ==
[~2020-01-05] MED LIST changes: +ACHYD1T PO; -HYDR-3820 PO
[2020-01-05 07:39] LABS: CREATININE SERUM 0.98 MG/DL (0.60-1.30); GFR ESTIMATED > 60
== END ==
LOC: LAB 07:00
PROVIDERS: ATTEND Internal Medicine Gastroenterology
DX: Z01.812 Encounter for preprocedural laboratory examination (principal); R10.11 Right upper quadrant pain; R10.31 Right lower quadrant pain
CPT/HCPCS: 36415; 82565

== ENCOUNTER → 2020-01-10 | Outpatient (CLI) | payer BC ==
[2020-01-05 07:39] LABS: CREATININE SERUM 0.98 MG/DL (0.60-1.30); GFR ESTIMATED > 60
[~2020-01-10] MED LIST changes: +HOLD METFORMIN - RECEIVED CONTRAST 20 ML VIAL IV SCH; +IOHEXOL 350 MG/ML 100 ML (OMNIPAQUE 350) VIAL IV ONE; +NS 100 ML (IVPB) BAG IV ONE
--- NOTE | 2020-01-10 09:21 | Diagnostic Imaging Report ---
PROCEDURE: CT abdomen and pelvis with contrast. TECHNIQUE: Multiple contiguous axial images were obtained through the abdomen and pelvis after administration of intravenous contrast. Auto Exposure Controls were utilized during the CT exam to meet ALARA standards for radiation dose reduction. INDICATION: Right upper quadrant pain. FINDINGS: The previous CT abdomen/pelvis exam of 06/05/2017 noted tiny punctate densities in the distal right ureter proximal to the ureterovesical junction. These small calculi were felt to be producing mild obstruction of the right collecting system. On this exam, however, there is no evidence for nephrolithiasis or urolithiasis and the right kidney does not appear to be obstructed. There is excretion of the contrast by the right kidney. The 3.5 cm cyst along the medial aspect of the right kidney seen previously does measure somewhat larger and is now estimated to be 3.9 cm. The 2.7 cm cyst along the inferior pole of the right kidney has also increased in size and is now estimated to be 3.5 cm. There is no evidence for a solid renal mass. The left kidney is generally unremarkable. The 1.6 cm cyst along the posterior aspect of the left kidney seen previously is no different than on the prior exam. The liver is of lower density than usually seen. This does suggest fatty metamorphosis. There is no focal mass involving the liver and the biliary tree is not abnormally dilated. The spleen, pancreas, adrenals, gallbladder, aorta, and inferior vena cava are unremarkable for an acute abnormality. The stomach is not well distended and consequently difficult to assess. The appendix is not particularly well visualized but there are no indirect signs of acute appendicitis. There is diverticulosis of the sigmoid and descending colon but there is no evidence for acute diverticulitis. The urinary bladder and prostate gland are grossly unremarkable. The bone windows show no sign of a fracture or of a destructive lesion. The lung bases are clear. IMPRESSION: 1. The partial obstruction of the right collecting system seen on the prior exam has resolved. There is no evidence for obstruction of either collecting system at this time. The cysts involving the right kidney seen previously do measure somewhat larger, however. 2. There is no acute abnormality of the abdomen or pelvis noted otherwise. Dictated by: Dictated on workstation # [id number]
== END ==
LOC: RAD 01-05 07:01
PROVIDERS: ATTEND Internal Medicine Gastroenterology
DX: Z01.812 Encounter for preprocedural laboratory examination (principal); N28.1 Cyst of kidney, acquired
CPT/HCPCS: 36415; 74177; 82565

== ENCOUNTER → 2020-01-17 | Outpatient (CLI) | payer BC ==
[~2020-01-17] MED LIST changes: -HOLD METFORMIN - RECEIVED CONTRAST 20 ML VIAL IV SCH; -IOHEXOL 350 MG/ML 100 ML (OMNIPAQUE 350) VIAL IV ONE; -NS 100 ML (IVPB) BAG IV ONE
[2020-01-17 09:38] LABS: BASOPHILS # (AUTO) 0.1 10^3/uL (0.0-0.1); BASOPHILS % (AUTO) 1 % (0-10); EOSINOPHILS # (AUTO) 0.2 10^3/uL (0.0-0.3); EOSINOPHILS % (AUTO) 2 % (0-10); HEMATOCRIT 45 % (40-54); HEMOGLOBIN 15.1 G/DL (13.3-17.7); LYMPHOCYTES # (AUTO) 1.8 X 10^3 (1.0-4.0); LYMPHOCYTES % (AUTO) 23 % (12-44); MEAN CORPUSCULAR HEMOGLOBIN 32 PG (25-34); MEAN CORPUSCULAR HGB CONC 34 G/DL (32-36); MEAN CORPUSCULAR VOLUME 93 FL (80-99); MEAN PLATELET VOLUME 9.5 FL (7.4-10.4); MONOCYTES # (AUTO) 0.9 X 10^3 (0.0-1.0); MONOCYTES % (AUTO) 11 % (0-12); NEUTROPHILS # (AUTO) 5.2 X 10^3 (1.8-7.8); NEUTROPHILS % (AUTO) 64 % (42-75); PLATELET COUNT 280 10^3/uL (130-400); RED CELL DISTRIBUTION WIDTH 12.8 % (10.0-14.5); WHITE BLOOD COUNT 8.2 10^3/uL (4.3-11.0)
[2020-01-17 10:18] LABS: FREE T4 (FREE THYROXINE) 0.96 NG/DL (0.70-1.48)
[2020-01-17 10:35] LABS: ALANINE AMINOTRANSFERASE 25 U/L (0-55); ALBUMIN 4.2 GM/DL (3.2-4.5); ALKALINE PHOSPHATASE 101 U/L (40-136); BILIRUBIN,TOTAL 0.5 MG/DL (0.1-1.0); BUN/CREATININE RATIO 14; CALCIUM 9.5 MG/DL (8.5-10.1); CARBON DIOXIDE 21 MMOL/L (21-32); CHLORIDE 108 MMOL/L (98-107); CHOLESTEROL 122 MG/DL (< 200); CREATININE SERUM 0.84 MG/DL (0.60-1.30); GFR ESTIMATED > 60; GLUCOSE 103 MG/DL (70-105); HDL CHOLESTEROL 34 MG/DL (40-60); POTASSIUM 3.9 MMOL/L (3.6-5.0); SODIUM 141 MMOL/L (135-145); TOTAL PROTEIN 7.1 GM/DL (6.4-8.2); TRIGLYCERIDES 233 MG/DL (<150); VLDL CHOLESTEROL 47 MG/DL (5-40)
== END ==
LOC: LAB 09:14
PROVIDERS: ATTEND Nurse Practitioner Family
DX: Z12.5 Encounter for screening for malignant neoplasm of prostate (principal); I10 Essential (primary) hypertension; E78.5 Hyperlipidemia, unspecified; E03.9 Hypothyroidism, unspecified; E55.9 Vitamin D deficiency, unspecified
CPT/HCPCS: 36415; 80053; 80061; 82306; 84153; 84439; 84443; 85025

== ENCOUNTER → 2020-03-22 | Outpatient (CLI) | payer BC, MEDICARE ==
--- NOTE | 2020-03-22 14:45 | Diagnostic Imaging Report ---
PROCEDURE: MRI left upper extremity without contrast. TECHNIQUE: Multiplanar, multisequence non contrast-enhanced MRI of the left upper extremity was accomplished. INDICATION: Right wrist cyst. Previous cyst removal with reattached tendon at the left wrist. COMPARISON: None FINDINGS: No acute fracture or dislocation is seen in the left wrist. Alignment appears normal. There are multiple T2 bright cystlike changes seen at the lunate and the proximal scaphoid as well as in the proximal 1st metacarpal. There are postsurgical changes at the 1st metacarpal base from prior trapeziectomy. No significant joint effusion is seen. The scapholunate and lunotriquetral ligaments appear intact. The triangle fiber cartilage complex appears intact. The flexor and extensor tendons are intact. No tenosynovitis is seen. The median nerve is unremarkable. The ulnar nerve appears normal. No focal muscular atrophy is seen. No muscular edema is seen. No fluid collections or masses are seen. No abnormality is seen underlying the MRI marker at the radial anterior aspect of the wrist. IMPRESSION: 1. No masses or fluid collections are seen about the left wrist. 2. Moderate degenerative changes in the left wrist. Postsurgical changes from prior trapezium ectomy. Dictated by: Dictated on workstation # [id number]
== END ==
LOC: RAD 12:04
PROVIDERS: ATTEND Nurse Practitioner Family
DX: M19.032 Primary osteoarthritis, left wrist (principal); M25.832 Other specified joint disorders, left wrist; Z98.890 Other specified postprocedural states
CPT/HCPCS: 73221

== ENCOUNTER → 2020-03-29 | Outpatient (CLI) | payer BC ==
[~2020-03-29] VITALS: Ht 185 cm; Wt 107.0 kg
[~2020-03-29] MED LIST changes: +CATHETER FLUSH 10 ML SYR IV PRN; +REGADENOSON 0.4 MG/5 ML SYR (LEXISCAN) IV ONE
[2020-03-29 08:46] VITALS: BP 144/80
[2020-03-29 08:48] VITALS: BP 144/80
--- NOTE | 2020-03-29 19:52 | STRESS TEST ---
DATE OF SERVICE: 03/29/2020 RESTING AND POST REGADENOSON TECHNETIUM-99M TETROFOSMIN SPECT CT IMAGING ORDERING PHYSICIAN: Shey Collins APRN PRIMARY PHYSICIAN: Dr. Michel. CLINICAL DIAGNOSES: Coronary artery disease. Baseline images were carried out after injection of 10.74 mCi of technetium-99m Tetrofosmin. This was followed by 0.2 mg of regadenoson and 29.2 mCi of technetium-99m Tetrofosmin for stress imaging. The electrocardiogram showed sinus rhythm. There was right bundle branch block. The electrocardiogram did not change significantly with regadenoson infusion. The patient noted some shortness of breath following regadenoson infusion, which resolved in a few minutes. Review of images at rest and following stress does not indicate any distinct perfusion defects consistent with significant myocardial ischemia or infarction. Gated images show normal. Global left ventricular systolic function with normal regional wall motion. Left ventricular ejection fraction is calculated to be 59%. Left ventricular end diastolic volume is 60 mL. TID is absent (1.08). CONCLUSIONS: 1. No evidence of any significant myocardial ischemia or infarction on this study. 2. Normal regional wall motion. 3. Normal global left ventricular systolic function with a calculated ejection fraction of 59%. Job ID: [id number] DocumentID: [id number] Dictated Date: 03/29/2020 15:23:16 Millinery Teacher Date: 03/29/2020 19:52:07 Dictated By: MORRIS MARTIN MD, MA, FACP, FACC,
== END ==
LOC: CARD 07:08
PROVIDERS: ATTEND Nurse Practitioner Family
DX: I25.10 Atherosclerotic heart disease of native coronary artery without angina pectoris (principal); I65.23 Occlusion and stenosis of bilateral carotid arteries; E78.5 Hyperlipidemia, unspecified; I10 Essential (primary) hypertension
CPT/HCPCS: 78452; 93017

== ENCOUNTER → 2020-12-13 | Outpatient (CLI) | payer BC ==
[~2020-12-13] VITALS: Ht 185 cm; Wt 102.0 kg
[~2020-12-13] MED LIST changes: -ALPR0.254 PO; +ASPI-1238 PO; -ASPI-983 PO; +BAMLANIVIMAB (NON FORM) 700 MG in NS (IVPB) 250 ML IV ONE; -CATHETER FLUSH 10 ML SYR IV PRN; +EPINEPHrine INJECTION 1 MG/ML AMP IM PRN; -ESCI20TA45 PO; +ESCI20TA56 PO; -OXYC-465 PO; +OXYC-556 PO; -REGADENOSON 0.4 MG/5 ML SYR (LEXISCAN) IV ONE; +diphenhydrAMINE 50 MG/ML INJ (BENADRYL) IV PRN
[2020-12-13 08:19] VITALS: BP 154/78
[2020-12-13 10:26] VITALS: BP 140/84
== END ==
LOC: INFUSION 08:23
PROVIDERS: ATTEND Nurse Practitioner Family
DX: U07.1 COVID-19 (principal)

== ENCOUNTER 2021-02-14 11:30 | Outpatient (RCR) | payer BC ==
[~2021-02-14 11:30] MED LIST changes: -BAMLANIVIMAB (NON FORM) 700 MG in NS (IVPB) 250 ML IV ONE; -EPINEPHrine INJECTION 1 MG/ML AMP IM PRN; +ESCI20TA39 PO; -ESCI20TA56 PO; -diphenhydrAMINE 50 MG/ML INJ (BENADRYL) IV PRN
== END 2021-02-19 | disposition home or self-care (01) ==
LOC: CR3 11:30
PROVIDERS: ATTEND Internal Medicine Cardiovascular Disease
DX: Z29.8 Encounter for other specified prophylactic measures (principal)

== ENCOUNTER 2021-03-12 11:21 | Outpatient (RCR) | payer BC | END 2021-03-23 | disposition home or self-care (01) | LOC: CR3 11:21 | PROVIDERS: ATTEND Internal Medicine Cardiovascular Disease | DX: Z29.8 Encounter for other specified prophylactic measures (principal) ==

== ENCOUNTER → 2021-06-11 | Outpatient (CLI) | payer BC ==
[~2021-06-11] MED LIST changes: -SULF1TAB35 PO; +SULF1TAB38 PO
--- NOTE | 2021-06-11 14:49 | Diagnostic Imaging Report ---
EXAMINATION: Abdomen. REASON FOR THE EXAM: History of renal calculi. COMPARISON: 01/10/2020. FINDINGS: Two supine radiographic views of the abdomen were obtained. The small bowel loops are nondistended. There is no large collection of free intraperitoneal air. No unexpected extraosseous calcifications or radiopaque foreign bodies are seen. The osseous structures show mild age-related degenerative changes. IMPRESSION: Nonobstructed small bowel gas pattern. Dictated by: Dictated on workstation # [id number]
== END ==
LOC: RAD 14:09
PROVIDERS: ATTEND Urology
DX: N20.0 Calculus of kidney (principal)
CPT/HCPCS: 74018

== ENCOUNTER 2022-01-05 07:07 | Outpatient (RCR) | payer BC ==
[~2022-01-05 07:07] MED LIST changes: -MAGN400T8 PO; +MGX400T PO
== END 2022-02-04 ==
LOC: CR3 07:07
PROVIDERS: ATTEND Internal Medicine Cardiovascular Disease
DX: Z29.8 Encounter for other specified prophylactic measures (principal)

== ENCOUNTER 2022-03-29 22:39 | Emergency (ER) | payer BC, MEDICARE ==
[~2022-03-29] VITALS: Ht 185 cm; Wt 104.0 kg
[2022-03-29] MEDS ORDERED: morphine INJ 10 MG/ML 1ML (SYR OR VIAL) IVP STA (23:06)
[2022-03-29] MEDS ORDERED: TAMSULOSIN 0.4 MG (FLOMAX) CAP PO STA (23:10)
--- NOTE | 2022-03-29 23:10 | ED Abdominal Pain ---
General Chief Complaint: Abdominal/GI Problems Stated Complaint: KIDNEY STONE Source of Information: Patient Exam Limitations: No Limitations History of Present Illness Date Seen by Provider: March 29, 2022 Time Seen by Provider: 23:03 Initial Comments Patient is a 72-year-old male who presents to the emergency department today with a chief complaint of left flank pain. Patient believes that he had a kidney stone about a week ago and the pain just went away on its own. He was straining his urine but never noticed that he passed the stone. Patient states about 2 hours prior to arrival he had a sudden onset of recurrence of left flank pain that he believes is consistent with a kidney stone. He states he was only able to "dribble" a little bit at home earlier this evening. He denies burning with urination. No fevers or chills. He is intermittently nauseous. No problems with bowel movements. He states he has had kidney stones "all my life". He follows with Dr. Lawson. He has an appointment scheduled with him next . He has not taken any pain medications this evening. Nothing really makes the pain any better or any worse. He has had previous appendectomy. All other review of systems reviewed and negative except as stated. Timing/Duration: 1-3 Hours Severity/Quality: Severe Location: Flank Radiation: No Radiation Activities at Onset: None Associated Symptoms: Nausea/Vomiting Allergies and Home Medications Allergies Coded Allergies: Iodinated Contrast Media (Verified Allergy, Unknown, 06/14/07) codeine (Verified Allergy, Unknown, 06/14/07) fexofenadine (Verified Allergy, Unknown, 06/14/07) hydrocodone (Verified Allergy, Unknown, 11/09/17) Patient Home Medication List Home Medication List Reviewed: Yes Ascorbic Acid (C-1000) 1,000 Mg Tablet, 1,000 MG PO DAILY, (Reported) Entered as Reported by: CARMELLA STINSON on 11/09/17 1023 Aspirin (Aspirin EC) 81 Mg Tablet.dr, 81 MG PO DAILY, (Reported) Entered as Reported by: NOEL REY on 01/13/16 1058 Atorvastatin Calcium (Atorvastatin Calcium) 80 Mg Tablet, 80 MG PO HS, (Reported) Entered as Reported by: NOEL REY on 01/13/16 1058 Baclofen (Baclofen) 10 Mg Tablet, 10 MG PO BID, (Reported) Entered as Reported by: NOEL REY on 01/13/16 1058 Cholecalciferol (Vitamin D3) (Vitamin D3) 5,000 Unit Tablet, 5,000 UNIT PO DAILY, (Reported) Entered as Reported by: CARMELLA STINSON on 11/09/17 1023 Clopidogrel Bisulfate (Clopidogrel) 75 Mg Tablet, 75 MG PO DAILY, (Reported) Entered as Reported by: NOEL REY on 01/13/16 1058 Levothyroxine Sodium (Levothyroxine Sodium) 112 Mcg Tablet, 112 MCG PO DAILY, (Reported) Entered as Reported by: NOEL REY on 01/13/16 1059 Magnesium Oxide (Magnesium Oxide) 400 Mg Tablet, 400 MG PO HS, (Reported) Entered as Reported by: CARMELLA STINSON on 11/09/17 1023 Metoprolol Succinate (Metoprolol Succinate) 25 Mg Tab.er.24h, 12.5 MG PO BID, (Reported) Entered as Reported by: NOEL REY on 01/13/16 1058 Multivits,Ca,Min/Iron/FA/Lycop (Centrum Men's Tablet) 1 Each Tablet, 1 EACH PO DAILY, (Reported) Entered as Reported by: CARMELLA STINSON on 11/09/17 1023 Oxycodone HCl/Acetaminophen (Oxycodone-Acetaminophen 10-325) 1 Each Tablet, 1 TAB PO Q4HR PRN for PAIN-SEVERE Prescribed by: ANISH LYNN on 11/25/17717 Sennosides/Docusate Sodium (Senna-Time S Tablet) 1 Each Tablet, 1 EA PO BID Prescribed by: ANISH LYNN on 11/25/17717 Tamsulosin HCl (Flomax) 0.4 Mg Cap, 0.4 MG PO DAILY@1800 Prescribed by: ANISH LYNN on 11/25/17717 Vitamin E Acetate (Vitamin E) 1,000 Unit Capsule, 1,000 UNIT PO DAILY, (Reported) Entered as Reported by: CARMELLA STINSON on 11/09/17 1023 Review of Systems Review of Systems Constitutional: see HPI EENTM: No Symptoms Reported Respiratory: No Symptoms Reported Cardiovascular: No Symptoms Reported Gastrointestinal: Abdominal Pain Genitourinary: Other (Dribbling urine) Musculoskeletal: no symptoms reported Skin: no symptoms reported Psychiatric/Neurological: No Symptoms Reported All Other Systems Reviewed Negative Unless Noted: Yes Past Kohgfdq-Mppjfi-Xutjsr Hx Seasonal Allergies Seasonal Allergies: No Past Medical History Surgeries: Yes (R TKR, CATARACT REMOVAL, ESOPHAGEAL REPAIR, MULTIPLE HEART CATHS) Respiratory: No Cardiac: Yes (RIGHT BUNDLE BRANCH BLOCK) Neurological: Yes (TIA in 2012) Reproductive Disorders: No Sexually Transmitted Disease: No Genitourinary: Yes Kidney Stones Gastrointestinal: Yes (ESOPHAGEAL REPAIR) Gastroesophageal Reflux, Esophagitis Musculoskeletal: Yes (R knee instability) Arthritis Endocrine: Yes Hypothyroidsim HEENT: No Loss of Vision: Denies Cancer: No Psychosocial: No Integumentary: No Blood Disorders: No Adverse Reaction/Blood Tranf: No Family Medical History Cardiovascular disease 19 MOTHER Myocardial infarction 19 MOTHER Physical Exam Vital Signs Vital Signs - First Documented 03/29/22 22:55 Pulse 81 Resp 18 B/P (MAP) 167/93 (117) Pulse Ox 98 O2 Delivery Room Air Capillary Refill : Height/Weight/BMI Height: 6'1.00" Weight: 230lbs. 0.0oz. [id number]; 31.26 BMI Method:Estimated General Appearance: WD/WN, moderate distress HEENT: PERRL/EOMI, other (Dry oral mucosa) Respiratory: lungs clear, normal breath sounds, no respiratory distress, no accessory muscle use Cardiovascular: regular rate, rhythm Gastrointestinal: normal bowel sounds, soft, tenderness (Mild tenderness in the left flank) Extremities: normal range of motion, normal inspection Back: CVA tenderness (L) Neurologic/Psychiatric: alert, normal mood/affect, oriented x 3 Skin: normal color, warm/dry Progress/Results/Core Measures Results/Orders Lab Results Laboratory Tests Test 03/29/22 22:55 03/30/22 01:10 Range/Units Sodium Level 143 135-145 MMOL/L Potassium Level 3.8 3.6-5.0 MMOL/L Chloride Level 105 98-107 MMOL/L Carbon Dioxide Level 23 21-32 MMOL/L Anion Gap 15 H 5-14 MMOL/L Blood Urea Nitrogen 18 7-18 MG/DL Creatinine 0.98 0.60-1.30 MG/DL Estimat Glomerular Filtration Rate 82 BUN/Creatinine Ratio 18 Glucose Level 133 H 70-105 MG/DL Calcium Level 9.6 8.5-10.1 MG/DL My Orders Orders - AINSLEY,CORINNE M MD Ed Iv/Invasive Line Start (03/29/22 23:06) Basic Metabolic Panel (03/29/22 23:06) Ua Culture If Indicated (03/29/22 23:06) Abdomen/Kub 1view (03/29/22 23:06) Ns Iv 1000 Ml (Sodium Chloride 0.9%) (03/29/22 23:15) Ketorolac Injection (Toradol Injection) (03/29/22 23:15) Morphine Injection (Morphine Injection (03/29/22 23:06) Ondansetron Injection (Zofran Injectio (03/29/22 23:15) Tamsulosin Capsule (Flomax Capsule) (03/29/22 23:10) Morphine Injection (Morphine Injection (03/30/22 00:03) Ct Abd/Pelvis Wo(Kidney Stone) (03/30/22 00:21) Medications Given in ED Current Medications Medications Dose Ordered Sig/Steve Route Start Time Stop Time Status Last Admin Dose Admin Ketorolac Tromethamine 15 mg ONCE ONCE IVP 03/29/22 23:15 03/29/22 23:16 DC 03/29/22 23:25 15 MG Ondansetron HCl 4 mg ONCE ONCE IVP 03/29/22 23:15 03/29/22 23:16 DC 03/29/22 23:23 4 MG Vital Signs/I&O 03/29/22 22:55 Pulse 81 Resp 18 B/P (MAP) 167/93 (117) Pulse Ox 98 O2 Delivery Room Air Progress Progress Note : Time: 01:19 Progress Note Feels much better. Pain basically resolved. He states that he has pain medication at home he can take and he has a scheduled follow up with Dr Patel on of this next week. Will send prescription of flomax to his pharmacy. he declines nausea meds. return precautions reviewed. Departure Impression Primary Impression: Kidney stone on left side Disposition: HOME, SELF-CARE Condition: Stable Departure-Patient Inst. Decision time for Depature: 01:20 Referrals: LISY BARILLAS DO (PCP/Family) Primary Care Physician TRISH LAWSON MD Patient Instructions: Kidney Stone, Adult ED Add. Discharge Instructions: drink plenty of fluids to stay well hydrated. Use your pain medications as needed. remember to take stool softeners if you are having to take hydrocodone. flomax nightly. antibiotics as directed for the next week. return to the emergency department if you have worsening pain not controlled by your pain medications, inability to urinate or fever over 101. please keep your follow up with Dr Lawson. Scripts Nitrofurantoin Monohyd/M-Cryst (Macrobid 100 mg Capsule) 100 Mg Capsule 1 TAB PO BID for 5 Days, #10 CAP Prov: CORINNE SCHMITZ MD 03/30/22 Tamsulosin HCl (Flomax) 0.4 Mg Cap 0.4 MG PO HS for 14 Days, #14 CAP Prov: CORINNE SCHMITZ MD 03/30/22 Copy Copies To 1: TRISH LAWSON MD, KATHRYN M MD March 29, 2022 23:10
[2022-03-29 23:13] LABS: POTASSIUM 3.8 MMOL/L (3.6-5.0)
[2022-03-29 23:15] LABS: CALCIUM 9.6 MG/DL (8.5-10.1)
[2022-03-29] MEDS ORDERED: KETOROLAC 30 MG/ML VIAL IVP ONE (23:15)
[2022-03-29] MEDS ORDERED: NS IV 1000 ML 1,000 ML IV SCH (23:15)
[2022-03-29] MEDS ORDERED: ONDANSETRON 4 MG/2 ML (SDV) Z0FRAN IVP ONE (23:15)
[2022-03-29 23:19] LABS: CREATININE SERUM 0.98 MG/DL (0.60-1.30)
[2022-03-30] MEDS ORDERED: morphine INJ 10 MG/ML 1ML (SYR OR VIAL) IVP STA (00:03)
[2022-03-30 01:16] LABS: BILIRUBIN,URINE NEGATIVE (NEGATIVE); CLARITY,URINE CLEAR; COLOR,URINE YELLOW; GLUCOSE, URINE (UA) NEGATIVE (NEGATIVE); KETONES,URINE NEGATIVE (NEGATIVE); LEUKOCYTE ESTERASE ,URINE NEGATIVE (NEGATIVE); NITRITE,URINE NEGATIVE (NEGATIVE); PH,URINE 5.5 (5-9); PROTEIN,URINE 1+ (NEGATIVE)
[2022-03-30 01:24] LABS: BACTERIA,URINE NEGATIVE /HPF; RBC,URINE 50-100 /HPF
[2022-03-30] MEDS ORDERED: TMSL.4C PO (01:24)
[2022-03-30] MEDS ORDERED: NITR-65 PO (01:24)
[2022-03-30] MEDS ORDERED: NITROFURANTOIN 100 MG (MACROBID) CAPSULE PO ONE (01:30)
[2022-03-30 01:34] VITALS: BP 145/94
--- NOTE | 2022-03-30 05:06 | Diagnostic Imaging Report ---
PROCEDURE: CT urinary tract, rule out kidney stone. TECHNIQUE: Multiple contiguous axial images were obtained through the abdomen and pelvis without the use of intravenous contrast. Auto Exposure Controls were utilized during the CT exam to meet ALARA standards for radiation dose reduction. INDICATION: 72-year-old male with left flank pain, previous history of renal calculi. COMPARISONS: 01/10/2020. FINDINGS: Lung bases show some chronic parenchymal changes. No consolidations are seen. There is no effusion or pneumothorax. Cardiac contour is normal. Liver shows uniform attenuation. Gallbladder is nondistended. Spleen and GE junction are normal. Stomach is moderately distended with gas. There is some mucosal thickening of the pylorus. Presence of a small gastric polyp cannot be excluded. Duodenal sweep is unremarkable. Pancreas shows sharp margins. Adrenals are normal. Kidneys show severe left perinephric stranding with moderate left hydronephrosis. There is also some left hydroureter. This left obstructive uropathy is secondary to a 3.5 mm stone at the left ureterovesical junction. Bladder is nondistended. Bilateral Bosniak classification 2 cysts are seen in the kidneys. The largest on the right measures approximately 4.7 cm x 3.6 cm. The largest cyst on the left is a capsular cyst measuring 2.3 cm. Nonopacified loops of small bowel are normal. Large bowel contains fecal material and gas up to the transverse colon. There is scattered diverticula with left distal colon and sigmoid colon with some mild diverticulosis. There is no evidence of acute diverticulitis. There is no free air or adenopathy. Few prostatic calcifications are seen. Few pelvic phleboliths are also seen. Nonaneurysmal aortic calcifications are noted and extend to the iliac and femoral arteries. IMPRESSION: 1. Left obstructive uropathy with moderate left hydronephrosis and left hydroureter with left perinephric stranding. This left obstructive uropathy is secondary to a 3.5 mm stone at the left UVJ 2. Bosniak classification 2 cysts bilaterally with measurements given above. 3. Left colon diverticular disease but no evidence of acute diverticulitis. 4. There is gaseous distention of stomach with some mucosal thickening of the pylorus with questionable small gastric polyp. Correlate clinically with possible endoscopy. Additional nonemergent findings as described above. Essentially agree with [facility] report. Dictated by: Dictated on workstation # [id number]
--- NOTE | 2022-03-30 05:59 | Diagnostic Imaging Report ---
INDICATION: Flank pain. Two views were obtained. FINDINGS: The bowel gas pattern is nonspecific. There are no abnormal abdominal calcifications. Osseous structures are unremarkable. IMPRESSION: Nonspecific bowel gas pattern Dictated by: Dictated on workstation # [id number]
== END 2022-03-30 01:34 | disposition home or self-care (01) ==
LOC: EDUNIT# 22:39 → ER 22:41
DX: N20.0 Calculus of kidney (principal)
CPT/HCPCS: 36415; 74018; 74176; 80048; 81000

== ENCOUNTER → 2022-04-01 | Outpatient (CLI) | payer MEDICARE ==
[~2022-04-01] MED LIST changes: +NITR-65 PO
--- NOTE | 2022-04-01 17:40 | Diagnostic Imaging Report ---
INDICATION: Kidney stones. TIME OF EXAM: 2:45 p.m. FINDINGS: Bowel gas pattern is nonobstructed. A vague calcific density in the left pelvis may represent calcific density noted in the distal left ureter on exam two days earlier. Right-sided pelvic calcifications are consistent with phleboliths. There are postsurgical changes in the right lower quadrant. IMPRESSION: Probable distal left ureteric calculus, similar in position to the exam two days earlier. Dictated by: Dictated on workstation # [id number]
== END ==
LOC: LAB 14:08
PROVIDERS: ATTEND Urology
DX: N20.1 Calculus of ureter (principal)
CPT/HCPCS: 74018

== ENCOUNTER → 2023-10-05 | Outpatient (CLI) | payer MEDICARE | LOC: CARD 08:48 | PROVIDERS: ATTEND Nurse Practitioner Family | DX: I34.0 Nonrheumatic mitral (valve) insufficiency (principal) | CPT/HCPCS: 93306 ==